=== PATIENT | male | born 1960 | race Caucasian/White ===

== ENCOUNTER 2019-12-19 09:49 | Inpatient (IN) ==
[2019-12-19] MEDS ORDERED: DIATRIZOATE MEGLU/DIATRIZO SOD 30 ML BOTTLE PO ONE (09:50)
[2019-12-19] MEDS ORDERED: IOPAMIDOL 100 ML BOTTLE IV ONE (09:50)
[2019-12-19] MEDS ORDERED: HYDROmorphone 1 MG/ML SYRINGE IV ONE ×2 (10:07→11:29)
[2019-12-19] MEDS ORDERED: 0.9 % SODIUM CHLORIDE 1,000 ML IV ONE ×2 (10:07→11:29)
[2019-12-19] MEDS ORDERED: ONDANSETRON 4 MG/2 ML VIAL IV ONE (10:07)
--- NOTE | 2019-12-19 10:19 | Emergency Department Note ---
Abdominal Pain HPI General Chief Complaint: Abdominal Pain Stated Complaint: abdominal pain Time Seen by Provider: 12/19/19 10:07 Source: patient Mode of arrival: ambulatory Limitations: no limitations History of Present Illness HPI Narrative: Patient is a 59-year-old male that comes into the emergency department today with complaint of right upper quadrant abdominal pain. Patient describes a dull aching sensation in the right upper quadrant that began 1 to 2 weeks ago. He has been seen at [facility] and also here at the emergency department at [facility]. Patient has had a ultras ound 2 days ago that did not show any acute cholecystitis or cholelithiasis. Patient's lipase level was mildly elevated. Patient was discharged from the emergency department 2 days ago with a referral made to Dr. Chen to follow-up for an outpatient consultation regarding his gallbladder. Patient return to the emergency department today as his pain has been worsening. He has not had any nausea or vomiting. He denies any melena or hematochezia. Patient reports he is a diabetic and his blood sugars have been uncontrolled for a long period of time. He has not had hemoglobin A1c less than 7%. He has not had any fevers or chills. He denies any chest pain, shortness of breath, or difficulty breathing. Related Data Home Medications Medication Instructions Recorded Confirmed metoprolol tartrate 50 mg PO HS 02/24/15 10/01/17 metformin 500 mg PO BID 07/27/15 10/01/17 aspirin [Lite Coat Aspirin] 4 tab PO PRN PRN 10/01/17 10/01/17 atorvastatin 10 mg PO HS 10/01/17 10/01/17 glipizide 5 mg PO QAMAC 10/01/17 10/01/17 Previous Rx's Medication Instructions Recorded aspirin 325 mg PO DAILY #14 tab.ec 10/07/17 cane #1 each 10/07/17 oxycodone-acetaminophen 1 - 2 tab PO Q4H PRN #60 tab 10/07/17 hydrocodone-acetaminophen 1 - 2 tab PO Q4HP PRN #20 tab 02/02/18 cefuroxime axetil 250 mg PO BID #20 tab 04/03/18 hydrocodone-acetaminophen 1 tab PO Q4HP PRN #12 tab 12/17/19 Allergies Allergy/AdvReac Type Severity Reaction Status Date / Time losartan [Losartan] Allergy Mild Itching Verified 12/19/19 09:51 lisinopril AdvReac Mild Cough Verified 12/19/19 09:51 Review of Systems All systems ED: reviewed and negative except as stated. [facility] Medical/Surgical/Family History All Active Problems (Updated 12/19/19 @ 15:41 by BRYCE Farrell) Strain of neck muscle (Acute) Post-op bleeding (Acute) Flank pain (Acute) Laceration (Acute) Nonalcoholic steatohepatitis (CEE) (Acute) Elevated lipase (Acute) Right upper quadrant abdominal pain (Acute) Hyperglycemia due to type 2 diabetes mellitus (Acute) Cholecystitis (Acute) Medical History (Updated 12/19/19 @ 15:41 by BRYCE Farrell) Strain of neck muscle (Acute) Social History Smoking Status: Current every day smoker Exam General Limitations: no limitations General appearance: alert and in no apparent distress Head Head: atraumatic and normocephalic Eye Eye: Present normal appearance, PERRL, EOMI and visual palumbo intact; Absent scleral icterus, conjunctival injection and periorbital swelling ENT ENT: Present normal oropharynx, mucous membranes moist and normal external ear exam; Absent nasal congestion Neck Neck: Present normal inspection, full ROM and trachea midline; Absent tenderness and lymphadenopathy Chest Chest: Present normal inspection and symmetric chest wall rise; Absent tenderness and rash Respiratory Respiratory: Present normal lung sounds bilaterally; Absent respiratory distress and accessory muscle use Cardiovascular Cardiovascular: Present regular rate, normal rhythm, +S1 and +S2; Absent systolic murmur, diastolic murmur and rubs Adbominal Abdominal: Present soft, normal bowel sounds and other (Moderate tenderness with palpation in the right upper quadrant. Positive Layne sign.); Absent distention, rebound, rigidity, ascites, mass and hernia Extremities Extremities: Present normal inspection, full ROM and normal capillary refill; Absent pedal edema, pretibial edema and calf tenderness Back Back: Present normal inspection, full ROM and CVA tenderness (R); Absent CVA tenderness (L), muscle spasm and spinous process tenderness Neurological Neurological: Present alert, oriented X3, CN II-XII intact and normal gait Psychiatric Psychiatric: Present normal affect and normal mood Skin Skin: Present warm, dry and normal color Course Reevaluation(s) Reevaluation #1: 1038 -patient given 1 mg of Dilaudid, a liter normal saline, currently pending labs at this time and abdominal x-ray. Patient resting comfortably. Urine dipstick is unremarkable except for glucosuria. Will check a blood sugar, and if elevated will plan on administering IV insulin. 1045 -patient's blood glucose was 313. Will administer 8 units of IV regular insulin. 1130 -repeat blood glucose level was 246. Patient rating pain 8 out of 10 on 0- 10 numerical pain scale. Will repeat 1 mg of Dilaudid, and order CT abdomen pelvis with contrast for further evaluation of the right upper quadrant abdominal pain. Patient was instructed to hold his metformin for 72 hours, and he was able to state verbal understanding. Vital Signs Vital signs: Vital Signs Temperature 96.3 F L 12/19/19 09:50 Pulse Rate 81 12/19/19 09:50 Respiratory Rate 18 12/19/19 09:50 Blood Pressure 111/87 12/19/19 09:50 Pulse Oximetry (%) 96 12/19/19 09:50 Temperature 97.4 F 12/19/19 15:18 Pulse Rate 65 12/19/19 15:18 Respiratory Rate 24 H 12/19/19 15:18 Blood Pressure 132/75 12/19/19 15:18 Pulse Oximetry (%) 94 12/19/19 15:18 [facility] MDM Narrative Medical decision making narrative: CT abdomen and pelvis shows inflammatory change around the gallbladder and in the right upper quadrant. Patient's labs do show the sodium 131, which is likely related to the blood glucose elevation. Patient has a total bilirubin of 0.5, AST 31, ALT 51. Alkaline phosphatase is 99. I called Dr. Gibson Chen who is on-call today to discuss the CT scan findings and Dr. Gibson Chen would like the patient admitted for observation and he will plan on seeing the patient and perhaps performing a cholecystectomy tomorrow morning. Patient is doing well at this time. He did receive a total of 2 mg of Dilaudid for pain which he did report had subsided his pain. Patient did continue to have pain, and will order the patient pain medication, nausea medicine, and IV fluids during the hospitalization. Dr. Gibson Chen will see the patient on the floor. Lab Data Lab results reviewed: Yes I reviewed the patient's lab results. Result diagrams: 12/19/19 10:21 12/19/19 10:20 Labs: Lab Results 12/19/19 12/19/19 12/19/19 Range/Units 10:09 10:10 10:20 WBC Cancelled RBC Cancelled Hgb Cancelled Hct Cancelled MCV Cancelled MCH Cancelled MCHC Cancelled RDW Cancelled Plt Count Cancelled MPV Cancelled Gran % Cancelled Lymph % (Auto) Cancelled [place] % (Auto) Cancelled Eos % (Auto) Cancelled Baso % (Auto) Cancelled Gran # Cancelled Lymph # (Auto) Cancelled [place] # (Auto) Cancelled Eos # (Auto) Cancelled Baso # (Auto) Cancelled Differential Comment Cancelled Sodium Cancelled 131 L Potassium Cancelled 4.3 Chloride Cancelled 94 L Carbon Dioxide Cancelled 25 Anion Gap Cancelled 12.0 BUN Cancelled 18 Creatinine Cancelled 1.0 GFR Calculation Cancelled 83 BUN/Creatinine Ratio Cancelled Glucose Cancelled 311 H Calcium Cancelled 9.6 Total Bilirubin Cancelled 0.5 AST Cancelled 31 ALT Cancelled 51 H Alkaline Phosphatase Cancelled 99 Total Protein Cancelled 7.4 Albumin Cancelled 4.0 Globulin Cancelled 3.4 Albumin/Globulin Ratio Cancelled 1.2 Lipase 63 H (7-60) U/L 12/19/19 Range/Units 10:21 WBC 7.1 RBC 5.33 Hgb 16.1 Hct 45.3 MCV 85.0 MCH 30.2 MCHC 35.5 RDW 12.0 Plt Count 155 MPV 11.5 H Gran % 63.3 Lymph % (Auto) 24.2 [place] % (Auto) 10.2 Eos % (Auto) 1.7 Baso % (Auto) 0.6 Gran # 4.47 Lymph # (Auto) 1.71 [place] # (Auto) 0.72 Eos # (Auto) 0.12 Baso # (Auto) 0.04 Differential Comment Sodium Potassium Chloride Carbon Dioxide Anion Gap BUN Creatinine GFR Calculation BUN/Creatinine Ratio Glucose Calcium Total Bilirubin AST ALT Alkaline Phosphatase Total Protein Albumin Globulin Albumin/Globulin Ratio Lipase (7-60) U/L Radiology Data Radiology results reviewed: Yes I reviewed the patient's radiology results. Radiology results narrative: Abdominal x-ray was read by Dr. Carlos today showing nonspecific and nonobstructive bowel gas pattern. No acute or focal abnormality. No interval change seen. 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
[2019-12-19 10:36] LABS: Basophils # (Auto) 0.04 K/mcL (0.00-0.30); Basophils % (Auto) 0.6 % (0.0-2.0); Eosinophils # (Auto) 0.12 K/mcL (0.00-0.70); Eosinophils % (Auto) 1.7 % (0.0-7.0); Granulocytes % (Auto) 63.3 % (38.0-78.0); Hematocrit 45.3 % (40.1-51.0); Hemoglobin 16.1 g/dL (13.7-17.5); Lymphocytes # (Auto) 1.71 K/mcL (1.50-4.80); Lymphocytes % (Auto) 24.2 % (15.5-49.0); Mean Corpuscular HGB Conc 35.5 g/dL (31.0-36.0); Mean Platelet Volume 11.5 fL (7.4-10.4); Monocytes # (Auto) 0.72 K/mcL (0.10-0.90); Monocytes % (Auto) 10.2 % (1.0-12.0); Platelet Count 155 K/mcL (140-440); RBC 5.33 M/mcL (4.63-6.08); WBC 7.1 K/mcL (4.50-11.00)
[2019-12-19] MEDS ORDERED: INSULIN REGULAR, HUMAN 1 UNIT/0.01 ML UNIT IV ONE (10:44)
[2019-12-19 10:59] LABS: ALT/SGPT 51 U/l (0-40); AST/SGOT 31 U/l (0-37); Albumin/Globulin Ratio 1.2 (1.0-2.3); Alkaline Phosphatase 99 U/L (39-117); Bilirubin,Total 0.5 mg/dL (0.0-1.0); Blood Urea Nitrogen 18 mg/dl (6-20); Calcium 9.6 mg/dl (8.6-10.4); Carbon Dioxide 25 mmol/L (22-30); Chloride 94 mmol/L (96-108); Globulin 3.4 gm/dL (2.2-3.7); Glomerular Filtration Rate 83; Glucose 311 mg/dL (70-105)
--- NOTE | 2019-12-19 11:03 | XRay Report ---
INDICATION: Pain TECHNIQUE: Supine and upright abdomen. COMPARISON: Previous plain film examination dated 02/02/2018. Previous CT scan dated 518 FINDINGS:Gas and fecal material within the colon. No dilated gas-filled small bowel. No significant air-fluid levels. There is no pneumoperitoneum. No biliary or portal venous gas. There is no pneumatosis. No focal abnormality. No interval change since 02/02/2018 IMPRESSION: 1. Nonspecific and nonobstructive bowel gas pattern 2. No acute or focal abnormality. No interval change Interpreted and Authenticated by: Efrain Carlos 12/19/19
--- NOTE | 2019-12-19 13:46 | Cat Scan Report ---
INDICATION: RUQ pain COMPARISON: Previous CT scan dated 02/02/2018. Previous abdominal ultrasound dated 12/17/2019 TECHNIQUE: Axial images were obtained through the abdomen and pelvis. Sagittally and coronally reformatted images. 80 mL Isovue 370 injected intravenously. Oral contrast material was given FINDINGS: Lung bases:Negative. No pulmonary parenchymal nodule. No pleural fluid or pericardial fluid Liver:Negative. No focal intrahepatic mass. No focal abnormality. Liver contour is smooth. No evidence for cirrhosis Gallbladder, bilary:There is inflammatory change within the fat surrounding the gallbladder and extending to the caudal tip of the liver and hepatic flexure of the colon. Previous right upper quadrant ultrasound demonstrated a contracted gallbladder. There were no stones visible at that time. Repeat gallbladder ultrasound with better gallbladder distention may be helpful. No calcified stones are identified on present examination. Common bile duct measures 3 mm. No intrahepatic bile duct dilatation Spleen:No splenomegaly. Normal enhancement of splenic and portal veins. Pancreas:No pancreatic mass. No peripancreatic abnormality Adrenal glands:Negative Kidneys, ureters, bladder:No solid or cystic renal mass. No hydronephrosis. No obstructing calculi. There is no hydroureter. No ureteral stone No bladder calculi or detectable mass Gastrointestinal:No detectable colonic mass. There is no diverticulitis. Small bowel is negative. No mechanical small bowel obstruction. Stomach and duodenum are unremarkable Appendix: The appendix is negative Vascular:Negative abdominal aorta. Superior mesenteric artery and celiac trunk are normal. Normal opacification of the inferior mesenteric artery Lymphatic:No retroperitoneal or mesenteric adenopathy Mesentery, peritoneum: No free intraperitoneal fluid. No mesenteric or retroperitoneal mass. Reproductive:Prostate is not significantly enlarged Musculoskeletal:Degenerative disc disease at L3-4, L4-5, and L5-S1. No compression fractures. Sacrum and pelvis are negative IMPRESSION: 1. Inflammatory change around the gallbladder and in the right upper quadrant. Repeat ultrasound may be helpful to evaluate for calculi. Previous right upper quadrant ultrasound was compromised by lack of gallbladder distention 2. No other abnormality The exam was performed using radiation dose optimization techniques including, but not limited to, automated exposure control, adjustment of the mA and/or kV according to patient size and use of iterative reconstruction technique. Interpreted and Authenticated by: Efrain Carlos 12/19/19
[2019-12-19] MEDS ORDERED: NALOXONE HCL 0.4 MG/ML VIAL IV PRN (14:23)
[2019-12-19] MEDS ORDERED: ONDANSETRON 4 MG/2 ML VIAL IV PRN (14:23)
[2019-12-19] MEDS ORDERED: morphine 2 MG/ML VIAL IV PRN (14:23)
[2019-12-19] MEDS: LACTATED RINGERS 1,000 ML IV SCH ×2 (14:42→23:43)
--- NOTE | 2019-12-19 16:55 | General Surg History&Physical ---
HPI History of Present Illness Patient information: Note initiated : 12/19/19 at 4:40 pm Service Date, if different from initiated Date: [] Patient: Yousif Tejeda 59 y/o M admitted on 12/19/19 for abdominal pain. Chief Complaint: [] History of present illness: Mr. Tejeda is a 59 year old M admitted with acute cholecystitis. The patient has a one-week history of recurrent severe right upper quadrant pain. He has been seen in the emergency room 2 for this pain. Ultrasound was done and showed a slightly thickened gallbladder but no stones. His LFTs were normal except for ALT of 51. He had continued symptoms and return today with increased findings of inflammatory changes in the right upper quadrant around the gallbladder with pericholecystic tissue edema and edema of the hepatic flexure of the colon. He has exquisite tenderness of the right upper quadrant and right subcostal region with thickening of the gallbladder wall. Patient has either acalculous cholecystitis or cholecystitis related to small stone obstructing the cystic duct. He is admitted and will have laparoscopic cholecystectomy tomorrow. Review of Systems All systems: reviewed and no additional remarkable complaints except as stated EENT Eyes: Present blurry vision (history of diabetic retinopathy) and change in vision Respiratory Respiratory: Present dyspnea Gastrointestinal Gastrointestinal: Present as per HPI Musculoskeletal Musculoskeletal: Present arthralgias Neurological Neurological: Present numbness Hematologic/Lymphatic Hematologic/Lymphatic: Absent easy bleeding, easy bruising and lymphadenopathy PFSH PFS Medical History (Updated 12/19/19 @ 16:54 by Jose G Chen MD) Strain of neck muscle (Acute) Social History smoking status: Current every day smoker MEDS/ALLERGIES Home Medications and Allergies Home Medications Medication Instructions Recorded Confirmed Type metoprolol tartrate 50 mg PO HS 02/24/15 12/19/19 History metformin 500 mg PO BID 07/27/15 12/19/19 History atorvastatin 10 mg PO HS 10/01/17 12/19/19 History glipizide 5 mg PO QAMAC 10/01/17 12/19/19 History cane #1 each 10/07/17 12/19/19 Rx hydrocodone-acetaminophen 1 tab PO Q4HP PRN #12 tab 12/17/19 12/19/19 Rx Allergies Allergy/AdvReac Type Severity Reaction Status Date / Time losartan [Losartan] Allergy Mild Itching Verified 12/19/19 09:51 lisinopril AdvReac Mild Cough Verified 12/19/19 09:51 Physical Examination Vital Signs Vital signs: Temp Pulse Resp BP Pulse Ox 97.4 F 65 24 H 132/75 94 12/19/19 15:18 12/19/19 15:18 12/19/19 15:18 12/19/19 15:18 12/19/19 15:18 Eyes Eye exam: PERRL and normal ocular movement; negative pale, icteric, deviation, loss of movement and other ENT ENT exam: normal pinna, normal nares, normal mucosa, decreased hearing and other (edentulous) Head Head exam IM: Present atraumatic, normal inspection and normocephalic Neck Neck exam: no masses; negative no bruits, trachea midline, no lymphadenopathy, no venous distension, deviated trachea, diffuse goiter, limited ROM and other Cardiovascular Cardiovascular exam IM: Present normal rate and rhythm, RRR, +S1 and +S2; Absent JVD and tachycardia Respiratory Respiratory exam: normal expansion, normal respiratory effort, clear to percussion, clear to auscultation and other Abdomen Abdomen: Present tender, guarding (exquisite tenderness with guarding and rebound right upper quadrant) and rebound Integumentary Integumentary: Present no rash, no growths, no abnormal pigmentation and other Neurologic Neurologic: Present normal coordination; Absent normal sensation Musculoskeletal Musculoskeletal: Present normal gait, normal posture and other Psychiatric Psychiatric: Present oriented to time, oriented to person, oriented to place, speech is normal, memory intact and other Results Labs Result diagrams: 12/19/19 10:21 12/19/19 10:20 Labs: Abnormal lab results 12/19/19 12/19/19 Range/Units 10:20 10:21 MPV 11.5 H (7.4-10.4) fL Sodium 131 L (133-145) mmol/L Chloride 94 L (96-108) mmol/L Glucose 311 H (70-105) mg/dL ALT 51 H (0-40) U/l Lipase 63 H (7-60) U/L Diabetes panel 12/19/19 12/19/19 Range/Units 10:09 10:20 Sodium Cancelled 131 L Potassium Cancelled 4.3 Chloride Cancelled 94 L Carbon Dioxide Cancelled 25 BUN Cancelled 18 Creatinine Cancelled 1.0 Glucose Cancelled 311 H Calcium Cancelled 9.6 AST Cancelled 31 ALT Cancelled 51 H Alkaline Phosphatase Cancelled 99 Total Protein Cancelled 7.4 Albumin Cancelled 4.0 Calcium panel 12/19/19 12/19/19 Range/Units 10:09 10:20 Calcium Cancelled 9.6 Albumin Cancelled 4.0 Pituitary panel 12/19/19 12/19/19 Range/Units 10:09 10:20 Sodium Cancelled 131 L Potassium Cancelled 4.3 Chloride Cancelled 94 L Carbon Dioxide Cancelled 25 BUN Cancelled 18 Creatinine Cancelled 1.0 Glucose Cancelled 311 H Calcium Cancelled 9.6 Adrenal panel 12/19/19 12/19/19 Range/Units 10:09 10:20 Sodium Cancelled 131 L Potassium Cancelled 4.3 Chloride Cancelled 94 L Carbon Dioxide Cancelled 25 BUN Cancelled 18 Creatinine Cancelled 1.0 Glucose Cancelled 311 H Calcium Cancelled 9.6 Total Bilirubin Cancelled 0.5 AST Cancelled 31 ALT Cancelled 51 H Alkaline Phosphatase Cancelled 99 Total Protein Cancelled 7.4 Albumin Cancelled 4.0 All other labs normal. 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 This will be performed tomorrow Status: Acute Time Spent With Patient Time: Total time spent is greater than 50% in coordination of care (as documented) at patient's floor/unit and/or counseling patient: Total time spent with greater than 50% in coordination of care (as documented) at patient's floor/unit and/or counseling patient:: 25 - 35 minutes
[2019-12-19] MEDS ORDERED: DEXTROSE 50% 50 ML VIAL IV PRN (17:03)
[2019-12-19] MEDS ORDERED: DEXTROSE 31 GM ORAL.SUSP PO PRN (17:03)
[2019-12-19 17:34] LABS: C-Reactive Protein 1.9 mg/dl (0.0-0.8)
[2019-12-19 17:36] LABS: INR 0.9 (0.9-1.1); Prothrombin Time 12.6 sec (11.9-14.5)
--- NOTE | 2019-12-19 19:30 | Ultrasound Report ---
INDICATION: repeat ultrasound to rule out cystic duct obstruct TECHNIQUE: Grayscale and color flow Doppler spectral imaging COMPARISON: Previous CT scan dated 12/19/2019 and ultrasound dated 12/17/2019 FINDINGS: Gallbladder:Patient ate prior to this examination. The gallbladder is slightly distended. No gallbladder calculi. No biliary sludge. No discrete mass. The gallbladder wall appears diffusely thickened and measures 6 mm. No pericholecystic fluid. Patient was tender when scanned over the gallbladder. Common bile duct:No intra or extrahepatic bile duct dilatation.. Common bile duct measures4 mm. Distal common bile duct is not well visualized. No common bile duct stones are identified but the entire common bile duct is not visualized. Liver: Liver is not evaluated Pancreas:Visualized portions of the pancreas are normal IMPRESSION: 1. Gallbladder wall appears diffusely thickened. Patient was tender when scanned over the gallbladder. 2. No gallstones or biliary sludge 3. No dilated bile ducts. Interpreted and Authenticated by: Efrain Carlos 12/19/19
[2019-12-19] MEDS: HYDROmorphone 1 MG/ML SYRINGE IV PRN ×2 (19:42→23:40)
[2019-12-19] MEDS: INSULIN LISPRO 1 UNIT/0.01 ML UNIT SQ SCH (20:59)
[2019-12-20] MEDS: LACTATED RINGERS 1,000 ML IV SCH (02:55)
[2019-12-20] MEDS: HYDROmorphone 1 MG/ML SYRINGE IV PRN ×6 (04:18→23:08)
[2019-12-20 04:39] LABS: Appearance,Urine CLEAR; Bilirubin,Urine NEG (NEG); Color,Urine YELLOW; Culture Indicated,Urine NO; Glucose,Urine (UA) 150 mg/dL (NEG); Ketones,Urine NEG (NEG); Leukocyte Esterase,Urine NEG /uL (NEG); Nitrate,Urine NEG (NEG); Protein,Urine NEG (NEG); Specific Gravity,Urine 1.017 (1.000-1.035); Urine Blood NEG mg/dL (<0.03); Urobilinogen,Urine NEG (NEG)
[2019-12-20] MEDS: INSULIN LISPRO 1 UNIT/0.01 ML UNIT SQ SCH ×4 (07:12→21:44)
[2019-12-20] MEDS ORDERED: SCOPOLAMINE 1 PATCH PATCH TOPICAL PRN (08:00)
[2019-12-20] MEDS ORDERED: IPRATROPIUM/ALBUTEROL 3 ML AMPUL.NEB NEB PRN ×4 (08:00→14:41)
[2019-12-20] MEDS ORDERED: ONDANSETRON 4 MG/2 ML VIAL IV PRN ×3 (10:21→14:41)
[2019-12-20] MEDS ORDERED: KETOROLAC 30 MG/ML VIAL IV PRN ×2 (10:21→12:43)
[2019-12-20] MEDS ORDERED: fentaNYL 100 MCG/2 ML VIAL IV PRN ×2 (10:21→12:43)
[2019-12-20] MEDS ORDERED: MEPERIDINE 25 MG/ML SYRINGE IV PRN ×2 (10:21→12:43)
[2019-12-20] MEDS ORDERED: PROMETHAZINE 25 MG/ML VIAL IM PRN ×2 (10:21→12:43)
[2019-12-20] MEDS ORDERED: MEPERIDINE 50 MG/ML INJECTION IM PRN ×2 (10:21→12:43)
[2019-12-20] MEDS ORDERED: GLYCOPYRROLATE 0.2 MG/ML VIAL IV ONE (10:27)
[2019-12-20] MEDS ORDERED: PROMETHAZINE 25 MG/ML VIAL IV ONE (10:27)
[2019-12-20] MEDS ORDERED: KETAMINE 100 MG/ML ML IV ONE (10:27)
[2019-12-20] MEDS ORDERED: PROPOFOL 200 MG/20 ML VIAL IV ONE (10:27)
[2019-12-20] MEDS ORDERED: ROCURONIUM 10 MG/ML ML IV ONE (10:27)
[2019-12-20] MEDS ORDERED: DEXAMETHASONE 10 MG/ML VIAL IV ONE (10:27)
[2019-12-20] MEDS ORDERED: fentaNYL 250 MCG/5 ML VIAL IV ONE (10:27)
[2019-12-20] MEDS ORDERED: LIDOCAINE HCL/PF 100 MG/5 ML SYRINGE IV ONE (10:27)
[2019-12-20] MEDS ORDERED: ONDANSETRON 4 MG/2 ML VIAL IV ONE (10:27)
[2019-12-20] MEDS ORDERED: SUGAMMADEX SODIUM 200 MG/2 ML VIAL IV ONE (10:27)
[2019-12-20] MEDS ORDERED: LACTATED RINGERS 1,000 ML IV SCH ×3 (10:30→14:41)
[2019-12-20] MEDS ORDERED: ACETAMINOPHEN 1,000 MG/100 ML BOTTLE IV ONE (12:43)
[2019-12-20] MEDS ORDERED: BENZOCAINE/MENTHOL 1 LOZENGE PO PRN ×2 (12:43→14:41)
[2019-12-20] MEDS ORDERED: HYDROmorphone 0.5 MG/0.5 ML SYRINGE IV PRN (12:43)
[2019-12-20] MEDS ORDERED: PROMETHAZINE 25 MG/ML VIAL IV PRN ×2 (12:43→14:41)
[2019-12-20] MEDS ORDERED: METHOCARBAMOL 1,000 MG/10 ML VIAL IV PRN (12:43)
--- NOTE | 2019-12-20 13:33 | Brief Operative Note ---
Brief Operative Note Date of procedure: 12/20/19 Pre-op diagnosis: acute cholecystitis Post-op diagnosis: other (cholecystitis with periduodenal inflammation) Procedure: open cholecystectomy WITH EXPLORATORY LAPAROTOMY Grafts/Implants: No (COLE DRAIN X2) Anesthesia: GETA Findings: GALLBLADDER WAS MILDLY INFLAMED SECONDARY TO AN INFLAMMATORY PROCESS IN SUBHEPATIC SPACE BUT COLON ,STOMACH AND DUODENUM WERE ALL NORMAL WITH OUT EVIDENCE OF DETECTABLE LEAKTHOUGH THERE WAS BILIOUS FLUID AND INFLAMMATORY EXUDATE IN RUQ QND SUBHEPATIC SPACE Complications: none Surgeon: Jose G Chen Estimated blood loss (cc): 50 Specimens Removed/Pathology: other (GALLBLADDER) Condition: stable Disposition: PACU
[2019-12-20] MEDS ORDERED: DEXTROSE 31 GM ORAL.SUSP PO PRN (14:41)
[2019-12-20] MEDS ORDERED: NALOXONE HCL 0.4 MG/ML VIAL IV PRN (14:41)
[2019-12-20] MEDS ORDERED: ACETAMINOPHEN 1,000 MG in PREMIX 1 BAG IV SCH (14:41)
[2019-12-20] MEDS ORDERED: LORazepam 2 MG/ML VIAL IV PRN (14:41)
[2019-12-20] MEDS ORDERED: DEXTROSE 50% 50 ML VIAL IV PRN (14:41)
[2019-12-20] MEDS: 0.9 % SODIUM CHLORIDE 1,000 ML IV SCH ×2 (15:19→21:45)
[2019-12-20] MEDS: PANTOPRAZOLE 40 MG VIAL IV SCH (17:00)
[2019-12-20] MEDS: PIPERACILLIN SODIUM/TAZOBACTAM 3.375 GM in DEXTROSE 5% IN WATER 50 ML IV SCH ×3 (17:00→23:08)
[2019-12-20] MEDS: KETOROLAC 15 MG/ML VIAL IV SCH (17:57)
[2019-12-20] MEDS: ACETAMINOPHEN 1,000 MG/100 ML BOTTLE IV SCH (20:39)
[2019-12-21] MEDS: KETOROLAC 15 MG/ML VIAL IV SCH ×4 (00:39→17:14)
[2019-12-21] MEDS: ACETAMINOPHEN 1,000 MG/100 ML BOTTLE IV SCH ×2 (02:54→07:08)
[2019-12-21] MEDS: HYDROmorphone 1 MG/ML SYRINGE IV PRN ×6 (03:01→21:56)
[2019-12-21] MEDS: 0.9 % SODIUM CHLORIDE 1,000 ML IV SCH ×5 (05:41→22:48)
[2019-12-21] MEDS: PIPERACILLIN SODIUM/TAZOBACTAM 3.375 GM in DEXTROSE 5% IN WATER 50 ML IV SCH ×3 (05:41→17:14)
[2019-12-21] MEDS: PANTOPRAZOLE 40 MG VIAL IV SCH ×2 (06:36→16:45)
[2019-12-21] MEDS: INSULIN LISPRO 1 UNIT/0.01 ML UNIT SQ SCH ×4 (06:39→19:50)
[2019-12-21 06:47] LABS: Basophils # (Auto) 0.02 K/mcL (0.00-0.30); Basophils % (Auto) 0.3 % (0.0-2.0); Eosinophils # (Auto) 0.13 K/mcL (0.00-0.70); Eosinophils % (Auto) 2.2 % (0.0-7.0); Granulocytes % (Auto) 68.6 % (38.0-78.0); Hemoglobin 13.7 g/dL (13.7-17.5); Lymphocytes # (Auto) 1.01 K/mcL (1.50-4.80); Lymphocytes % (Auto) 17.3 % (15.5-49.0); Mean Cell Volume 89.1 fL (80.0-100.0); Mean Corpuscular HGB Conc 33.4 g/dL (31.0-36.0); Mean Platelet Volume 11.3 fL (7.4-10.4); Monocytes # (Auto) 0.68 K/mcL (0.10-0.90); Monocytes % (Auto) 11.6 % (1.0-12.0); Platelet Count 139 K/mcL (140-440); Red Cell Distribution Width 12.2 % (11.5-14.5); WBC 5.9 K/mcL (4.50-11.00)
[2019-12-21 07:07] LABS: ALT/SGPT 35 U/l (0-40); AST/SGOT 32 U/l (0-37); Albumin 2.8 gm/dL (3.2-5.2); Alkaline Phosphatase 67 U/L (39-117); Bilirubin,Direct 0.3 mg/dL (0.0-0.3); Bilirubin,Total 0.9 mg/dL (0.0-1.0); Blood Urea Nitrogen 12 mg/dl (6-20); Calcium 8.3 mg/dl (8.6-10.4); Carbon Dioxide 25 mmol/L (22-30); Chloride 98 mmol/L (96-108); Glomerular Filtration Rate 83; Glucose 142 mg/dL (70-105); Lactate Dehydrogenase 212 U/L (94-250); Phosphorous 3.5 mg/dL (2.7-4.5); Triglycerides 70 mg/dl (<150); Uric Acid 3.2 mg/dL (2.5-8.0)
[2019-12-21 07:11] LABS: Globulin 2.8 gm/dL (2.2-3.7)
--- NOTE | 2019-12-21 16:35 | General Surgery Progress Note ---
SUBJECTIVE Subjective Patient information: Note initiated : 12/21/19 at 4:31 pm Service Date, if different from initiated Date: [] Patient: Yousif Tejeda 59 y/o M admitted on 12/20/19 for abdominal pain. Chief Complaint: [] Interval history: Narrative:patient is stable status post open cholecystectomy and drainage of right paraduodenal space. He is immobile. He denies nausea. His pain is not well controlled. Constitutional Vitals: Vital Signs Temp Pulse Resp BP Pulse Ox 98.6 F 78 18 136/75 91 12/21/19 15:18 12/21/19 15:18 12/21/19 15:18 12/21/19 15:18 12/21/19 15:18 Period Temp Pulse Resp BP Sys/Beth Pulse Ox Last 24 Hr 98.1 F-98.7 F 68-83 16-20 106-136/66-78 91-97 Intake and Output 12/21/19 12/21/19 12/21/19 05:59 13:59 21:59 Intake Total 1050 1350 Output Total 1170 250 510 Balance -120 1100 -510 Intake & Output: Intake & Output 12/21/19 12/21/19 12/21/19 05:59 13:59 21:59 Intake Total 1050 1350 Output Total 1170 250 510 Balance -120 1100 -510 Intake: IV 1050 1250 Sodium Chloride 0.9% 1,000 ml @ 1000 1000 150 mls/hr IV .[id number] RODRIGUEZ Rx#: [id number] Zosyn 3.375 gm In Dextrose 5% 50 50 in Water 50 ml @ 100 mls/hr IV Q6H RODRIGUEZ Rx#:[id number] Oral 100 Output: Gastric Drainage 300 200 Right Nare 300 200 Drainage 70 50 35 TERI drain A 30 30 20 TERI drain B 40 20 15 Void Amount 800 200 275 Other: Urine Appearance Clear Clear Urine Color Dark Yellow Light Polly Light Polly Urine Odor Strong Normal Neck Neck exam: Present full ROM and normal inspection; Absent tenderness and thyromegaly Respiratory Respiratory exam: Present normal respiratory exam and CTAB; Absent rales, rhonchi and wheezes Cardiovascular Cardiovascular exam: Present normal rate and rhythm, RRR, +S1 and +S2; Absent JVD GI/Abdominal GI/Abdominal exam: Present normal bowel sounds, distended and tenderness Additional comments: moderate tenderness of the incision; incision looks good; TERI drainage is serosanguineous Extremities Exam Extremities exam: Present full ROM and normal capillary refill; Absent normal inspection and pedal edema Back Exam Back exam: Present full ROM and normal inspection; Absent CVA tenderness (L), CVA tenderness (R) and tenderness Neurological Exam Neurological exam: Present alert, CN II-XII intact, normal gait and oriented X3 Psychiatric Psychiatric exam: Present normal affect and normal mood Skin Skin exam: Present normal color; Absent cyanosis and rash A/P Assessment and plan (1) Nonalcoholic steatohepatitis (CEE): Status: Acute (2) Hyperglycemia due to type 2 diabetes mellitus: Status: Acute Qualifiers: 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 Will continue on present therapy. Time Spent With Patient Time: Total time spent is greater than 50% in coordination of care (as documented) at patient's floor/unit and/or counseling patient:
[2019-12-21] MEDS: 0.9 % SODIUM CHLORIDE 10 ML SYRINGE IV SCH ×2 (19:51→20:07)
[2019-12-22] MEDS: PIPERACILLIN SODIUM/TAZOBACTAM 3.375 GM in DEXTROSE 5% IN WATER 50 ML IV SCH ×5 (00:07→23:54)
[2019-12-22] MEDS: HYDROmorphone 1 MG/ML SYRINGE IV PRN ×10 (00:07→23:53)
[2019-12-22] MEDS: KETOROLAC 15 MG/ML VIAL IV SCH ×3 (00:07→11:36)
[2019-12-22] MEDS: 0.9 % SODIUM CHLORIDE 10 ML SYRINGE IV SCH ×5 (05:06→20:38)
[2019-12-22] MEDS: 0.9 % SODIUM CHLORIDE 1,000 ML IV SCH ×4 (05:58→22:56)
[2019-12-22 07:23] LABS: Basophils # (Auto) 0.02 K/mcL (0.00-0.30); Basophils % (Auto) 0.3 % (0.0-2.0); Eosinophils # (Auto) 0.27 K/mcL (0.00-0.70); Eosinophils % (Auto) 4.2 % (0.0-7.0); Granulocytes % (Auto) 71.4 % (38.0-78.0); Hematocrit 40.4 % (40.1-51.0); Hemoglobin 13.4 g/dL (13.7-17.5); Lymphocytes # (Auto) 1.03 K/mcL (1.50-4.80); Lymphocytes % (Auto) 16.1 % (15.5-49.0); Mean Cell Volume 90.2 fL (80.0-100.0); Mean Corpuscular HGB Conc 33.2 g/dL (31.0-36.0); Mean Platelet Volume 10.6 fL (7.4-10.4); Monocytes # (Auto) 0.51 K/mcL (0.10-0.90); Platelet Count 144 K/mcL (140-440); RBC 4.48 M/mcL (4.63-6.08); Red Cell Distribution Width 11.9 % (11.5-14.5); WBC 6.4 K/mcL (4.50-11.00)
[2019-12-22] MEDS: PANTOPRAZOLE 40 MG VIAL IV SCH ×2 (07:31→16:59)
[2019-12-22] MEDS: INSULIN LISPRO 1 UNIT/0.01 ML UNIT SQ SCH ×4 (07:36→19:51)
[2019-12-22 07:44] LABS: ALT/SGPT 26 U/l (0-40); AST/SGOT 25 U/l (0-37); Albumin 2.7 gm/dL (3.2-5.2); Albumin/Globulin Ratio 0.9 (1.0-2.3); Alkaline Phosphatase 70 U/L (39-117); Bilirubin,Direct 0.2 mg/dL (0.0-0.3); Bilirubin,Total 0.7 mg/dL (0.0-1.0); Blood Urea Nitrogen 9 mg/dl (6-20); Calcium 7.6 mg/dl (8.6-10.4); Carbon Dioxide 22 mmol/L (22-30); Chloride 102 mmol/L (96-108); Globulin 3.1 gm/dL (2.2-3.7); Glomerular Filtration Rate 99; Glucose 107 mg/dL (70-105); Lactate Dehydrogenase 196 U/L (94-250); Triglycerides 99 mg/dl (<150); Uric Acid 2.8 mg/dL (2.5-8.0)
[2019-12-22 07:48] LABS: Phosphorous 2.2 mg/dL (2.7-4.5)
--- NOTE | 2019-12-22 11:55 | Surgical Pathology Report ---
HISTOLOGY SPECIMEN MICROSCOPIC DIAGNOSIS GALLBLADDER, CHOLECYSTECTOMY: -- CHRONIC CHOLECYSTITIS WITH ACUTE SEROSITIS; SEE COMMENT. (DMT:adj) COMMENT: Sections show gallbladder mucosal changes consistent with chronic cholecystitis. Additionally, on the serosal surface are numerous neutrophils and fibrinous debris, consistent with acute serositis. No luminal or mural neutrophilic infiltrate is identified arguing against an acute cholecystitis as a cause for the serositis. Causes for acute serositis not related to the gallbladder should be considered. Clinical correlation is necessary. CLINICAL HISTORY Abdominal pain. PROCEDURAL IMPRESSION Wall thickening. GROSS DESCRIPTION Received in formalin labeled with the patient information, is a 9 x 2.5 x 1.1 cm dark purple-maurice gallbladder. There are multiple metal clips present, however the duct is not clipped. The serosal surface is smooth and glistening. The lumen contains a minimal amount of watery green fluid. There are two openings on the hepatic bed each 0.2 cm. The mucosa is maurice-brown and trabecular. The wall is up to 0.3 cm thick. No stones or gross lesions are identified. Building Maintenance Repairer sections submitted in one cassette. (STS:sln) Electronically Signed by: Moncho Connors M.D.
--- NOTE | 2019-12-22 15:36 | General Surg History&Physical ---
HPI History of Present Illness Patient information: Note initiated : 12/19/19 at 4:55 pm Service Date, if different from initiated Date: [] Patient: Yousif Tejeda 59 y/o M admitted on 12/19/19 for abdominal pain. Chief Complaint: [] History of present illness: Mr. Tejeda is a 59 year old M [facility] Medical History (Updated 12/19/19 @ 16:54 by Jose G Chen MD) Strain of neck muscle (Acute) Social History smoking status: Current every day smoker MEDS/ALLERGIES Home Medications and Allergies Home Medications Medication Instructions Recorded Confirmed Type metoprolol tartrate 50 mg PO HS 02/24/15 12/19/19 History metformin 500 mg PO BID 07/27/15 12/19/19 History atorvastatin 10 mg PO HS 10/01/17 12/19/19 History glipizide 5 mg PO QAMAC 10/01/17 12/19/19 History cane #1 each 10/07/17 12/19/19 Rx hydrocodone-acetaminophen 1 tab PO Q4HP PRN #12 tab 12/17/19 12/19/19 Rx Allergies Allergy/AdvReac Type Severity Reaction Status Date / Time lisinopril AdvReac Mild Cough Verified 12/19/19 09:51 losartan [Losartan] AdvReac Mild Itching Verified 12/21/19 08:14 Physical Examination Vital Signs Vital signs: Temp Pulse Resp BP Pulse Ox 97.4 F 62 16 110/70 96 12/19/19 16:00 12/19/19 16:00 12/19/19 16:00 12/19/19 16:00 12/19/19 16:00 Results Labs Result diagrams: 12/22/19 05:45 12/22/19 05:45 Labs: Abnormal lab results 12/19/19 12/19/19 Range/Units 10:20 10:21 MPV 11.5 H (7.4-10.4) fL Sodium 131 L (133-145) mmol/L Chloride 94 L (96-108) mmol/L Glucose 311 H (70-105) mg/dL ALT 51 H (0-40) U/l Lipase 63 H (7-60) U/L Diabetes panel 12/19/19 12/19/19 Range/Units 10:09 10:20 Sodium Cancelled 131 L Potassium Cancelled 4.3 Chloride Cancelled 94 L Carbon Dioxide Cancelled 25 BUN Cancelled 18 Creatinine Cancelled 1.0 Glucose Cancelled 311 H Calcium Cancelled 9.6 AST Cancelled 31 ALT Cancelled 51 H Alkaline Phosphatase Cancelled 99 Total Protein Cancelled 7.4 Albumin Cancelled 4.0 Calcium panel 12/19/19 12/19/19 Range/Units 10:09 10:20 Calcium Cancelled 9.6 Albumin Cancelled 4.0 Pituitary panel 12/19/19 12/19/19 Range/Units 10:09 10:20 Sodium Cancelled 131 L Potassium Cancelled 4.3 Chloride Cancelled 94 L Carbon Dioxide Cancelled 25 BUN Cancelled 18 Creatinine Cancelled 1.0 Glucose Cancelled 311 H Calcium Cancelled 9.6 Adrenal panel 12/19/19 12/19/19 Range/Units 10:09 10:20 Sodium Cancelled 131 L Potassium Cancelled 4.3 Chloride Cancelled 94 L Carbon Dioxide Cancelled 25 BUN Cancelled 18 Creatinine Cancelled 1.0 Glucose Cancelled 311 H Calcium Cancelled 9.6 Total Bilirubin Cancelled 0.5 AST Cancelled 31 ALT Cancelled 51 H Alkaline Phosphatase Cancelled 99 Total Protein Cancelled 7.4 Albumin Cancelled 4.0 All other labs normal. A/P Assessment and plan (1) Nonalcoholic steatohepatitis (CEE): Status: Acute (2) Hyperglycemia due to type 2 diabetes mellitus: Status: Acute Qualifiers: Diabetes mellitus half-way insulin use: unspecified half-way insulin use status Qualified Code(s): E11.65 - Type 2 diabetes mellitus with hyperglycemia (3) History of total knee arthroplasty: Status: Acute (4) Acute cholecystitis: Status: Acute Time Spent With Patient Time: Total time spent is greater than 50% in coordination of care (as documented) at patient's floor/unit and/or counseling patient:
--- NOTE | 2019-12-22 15:40 | General Surgery Progress Note ---
SUBJECTIVE Subjective Patient information: Note initiated : 12/22/19 at 3:36 pm Service Date, if different from initiated Date: [] Patient: Yousif Tejeda 59 y/o M admitted on 12/20/19 for abdominal pain. Chief Complaint: [] Interval history: Narrative:patient is improved. He is afebrile. He has had flatus but no bowel movement. White blood count 6.4, hemoglobin 13.4, hematocrit 40.4. Constitutional Vitals: Vital Signs Temp Pulse Resp BP Pulse Ox 98.2 F 78 20 149/76 93 12/22/19 12:00 12/22/19 12:00 12/22/19 12:00 12/22/19 12:00 12/22/19 12:00 Period Temp Pulse Resp BP Sys/Beth Pulse Ox Last 24 Hr 97.7 F-99.2 F 78-96 14-20 131-149/63-92 90-93 Intake and Output 12/22/19 12/22/19 12/22/19 05:59 13:59 21:59 Intake Total 1100 1100 Output Total 905 800 Balance 195 300 Weight 223 lb 1.6 oz Patient Weight 12/23/19 05:59 Weight 223 lb 1.6 oz Intake & Output: Intake & Output 12/22/19 12/22/19 12/22/19 05:59 13:59 21:59 Intake Total 1100 1100 Output Total 905 800 Balance 195 300 Weight 223 lb 1.6 oz Intake: IV 1050 1100 Sodium Chloride 0.9% 1,000 ml @ 1000 1000 150 mls/hr IV .Q6H40M RODRIGUEZ Rx#: [id number] Zosyn 3.375 gm In Dextrose 5% 50 100 in Water 50 ml @ 100 mls/hr IV Q6H RODRIGUEZ Rx#:[id number] Oral 50 Output: Gastric Drainage 200 Right Nare 200 Drainage 105 TERI drain A 80 TERI drain B 25 Void Amount 600 800 Other: Urine Appearance Clear Clear Urine Color Bright Yellow Straw Urine Odor Normal # Voids 1 Head Head exam: Present atraumatic, normal inspection and normocephalic Eye Eye exam: Present EOMI Pupils: Present normal accommodation and PERRL ENT ENT exam: Present mucous membranes moist, normal exam, normal external ear exam and normal oropharynx Neck Neck exam: Present full ROM and normal inspection; Absent lymphadenopathy, tenderness and thyromegaly Respiratory Respiratory exam: Present normal respiratory exam and CTAB; Absent rales, respiratory distress, rhonchi and wheezes Cardiovascular Cardiovascular exam: Present normal rate and rhythm, RRR, +S1 and +S2; Absent gallop and JVD GI/Abdominal GI/Abdominal exam: Present normal bowel sounds and distended Additional comments: abdomen is mildly distended; he has good active bowel sounds; incision looks good; TERI drainage is serosanguineous Back Exam Back exam: Present full ROM and normal inspection; Absent CVA tenderness (L), CVA tenderness (R) and tenderness Neurological Exam Neurological exam: Present reflexes normal; Absent motor sensory deficit Psychiatric Psychiatric exam: Present normal affect and normal mood Skin Skin exam: Absent petechiae, rash and urticaria A/P Assessment and plan (1) Nonalcoholic steatohepatitis (CEE): Status: Acute (2) Hyperglycemia due to type 2 diabetes mellitus: Status: Acute Qualifiers: Diabetes mellitus senior care insulin use: unspecified senior care insulin use status Qualified Code(s): E11.65 - Type 2 diabetes mellitus with hyperglycemia (3) History of total knee arthroplasty: Status: Acute (4) Acute cholecystitis: Status: Acute Narrative A/P Narrative: Narrative: discontinue nasogastric tube Start clear liquids Follow-up with cultures Time Spent With Patient Time: Total time spent is greater than 50% in coordination of care (as documented) at patient's floor/unit and/or counseling patient:
[2019-12-23] MEDS: HYDROmorphone 1 MG/ML SYRINGE IV PRN ×8 (01:55→22:05)
[2019-12-23] MEDS: 0.9 % SODIUM CHLORIDE 10 ML SYRINGE IV SCH ×3 (04:00→20:35)
[2019-12-23] MEDS: PIPERACILLIN SODIUM/TAZOBACTAM 3.375 GM in DEXTROSE 5% IN WATER 50 ML IV SCH ×4 (05:46→23:48)
[2019-12-23] MEDS: 0.9 % SODIUM CHLORIDE 1,000 ML IV SCH ×4 (05:49→21:39)
[2019-12-23] MEDS: PANTOPRAZOLE 40 MG VIAL IV SCH ×2 (06:51→17:14)
[2019-12-23] MEDS: INSULIN LISPRO 1 UNIT/0.01 ML UNIT SQ SCH ×4 (07:44→20:35)
[2019-12-23 09:53] LABS: Basophils # (Auto) 0.04 K/mcL (0.00-0.30); Basophils % (Auto) 0.7 % (0.0-2.0); Eosinophils % (Auto) 5.5 % (0.0-7.0); Granulocytes % (Auto) 65.2 % (38.0-78.0); Hematocrit 41.1 % (40.1-51.0); Hemoglobin 14.2 g/dL (13.7-17.5); Lymphocytes # (Auto) 1.06 K/mcL (1.50-4.80); Lymphocytes % (Auto) 19.3 % (15.5-49.0); Mean Cell Volume 86.3 fL (80.0-100.0); Mean Corpuscular HGB Conc 34.5 g/dL (31.0-36.0); Mean Platelet Volume 10.4 fL (7.4-10.4); Monocytes # (Auto) 0.51 K/mcL (0.10-0.90); Monocytes % (Auto) 9.3 % (1.0-12.0); Platelet Count 179 K/mcL (140-440); RBC 4.76 M/mcL (4.63-6.08); Red Cell Distribution Width 11.8 % (11.5-14.5); WBC 5.5 K/mcL (4.50-11.00)
[2019-12-23 10:54] LABS: ALT/SGPT 27 U/l (0-40); AST/SGOT 25 U/l (0-37); Albumin 3.4 gm/dL (3.2-5.2); Alkaline Phosphatase 81 U/L (39-117); Bilirubin,Direct 0.3 mg/dL (0.0-0.3); Bilirubin,Total 0.8 mg/dL (0.0-1.0); Blood Urea Nitrogen 7 mg/dl (6-20); Calcium 8.5 mg/dl (8.6-10.4); Carbon Dioxide 22 mmol/L (22-30); Chloride 96 mmol/L (96-108); Globulin 3.4 gm/dL (2.2-3.7); Glomerular Filtration Rate 99; Glucose 237 mg/dL (70-105); Lactate Dehydrogenase 219 U/L (94-250); Phosphorous 2.2 mg/dL (2.7-4.5); Triglycerides 134 mg/dl (<150); Uric Acid 2.4 mg/dL (2.5-8.0)
--- NOTE | 2019-12-23 16:50 | General Surgery Progress Note ---
SUBJECTIVE Subjective Patient information: Note initiated : 12/23/19 at 4:47 pm Service Date, if different from initiated Date: [] Patient: Yousif Tejeda 59 y/o M admitted on 12/20/19 for abdominal pain. Chief Complaint: [] Interval history: Narrative: patient continues to improve. He has been afebrile had multiple bowel movements. He has tolerated full liquids without difficulty. Potassium 3.5, BUN 7, creatinine is 0.8, phosphorus 2.2, white blood count 5.5, hemoglobin 14.2, hematocrit 41. Constitutional Vitals: Vital Signs Temp Pulse Resp BP Pulse Ox 98.2 F 69 18 144/85 94 12/23/19 11:48 12/23/19 11:48 12/23/19 11:48 12/23/19 11:48 12/23/19 11:48 Period Temp Pulse Resp BP Sys/Beth Pulse Ox Last 24 Hr 98.2 F-98.7 F 69-85 16-20 135-154/79-91 91-96 Intake and Output 12/23/19 12/23/19 12/23/19 05:59 13:59 21:59 Intake Total 1050 1100 Output Total 2556 400 340 Balance -1506 700 -340 Intake & Output: Intake & Output 12/23/19 12/23/19 12/23/19 05:59 13:59 21:59 Intake Total 1050 1100 Output Total 2556 400 340 Balance -1506 700 -340 Intake: IV 1050 1100 Sodium Chloride 0.9% 1,000 ml @ 1000 1000 150 mls/hr IV .Q6H40M RODRIGUEZ Rx#: [id number] Zosyn 3.375 gm In Dextrose 5% 50 100 in Water 50 ml @ 100 mls/hr IV Q6H RODRIGUEZ Rx#:[id number] Oral 0 Output: Drainage 56 50 40 TERI drain A 28 30 30 TERI drain B 28 20 10 Void Amount 2500 350 300 Other: Urine Appearance Clear Urine Color Bright Yellow # Voids 1 1 Head Head exam: Present atraumatic, normal inspection and normocephalic Eye Eye exam: Present EOMI Pupils: Present normal accommodation and PERRL ENT ENT exam: Present mucous membranes moist, normal exam, normal external ear exam and normal oropharynx Neck Neck exam: Present full ROM and normal inspection; Absent lymphadenopathy, tenderness and thyromegaly Respiratory Respiratory exam: Present normal respiratory exam and CTAB; Absent rales, respiratory distress, rhonchi and wheezes Cardiovascular Cardiovascular exam: Present normal rate and rhythm, RRR, +S1 and +S2; Absent gallop and JVD GI/Abdominal GI/Abdominal exam: Present normal bowel sounds and distended Additional comments: abdomen is mildly distended; he has good active bowel sounds; incision looks good; TERI drainage is serosanguineous Extremities Exam Extremities exam: Present full ROM and normal capillary refill; Absent normal inspection and pedal edema Neurological Exam Neurological exam: Present reflexes normal; Absent motor sensory deficit Psychiatric Psychiatric exam: Present normal affect and normal mood A/P Assessment and plan (1) Nonalcoholic steatohepatitis (CEE): Status: Acute Comment: stable without change (2) Hyperglycemia due to type 2 diabetes mellitus: Status: Acute Qualifiers: Diabetes mellitus senior care insulin use: unspecified superintendent container terminal insulin use status Qualified Code(s): E11.65 - Type 2 diabetes mellitus with hyperglycemia (3) History of total knee arthroplasty: Status: Acute (4) Acute cholecystitis: Status: Acute Comment: clinically stable; diet is advanced to regular diet Probable discharge tomorrow Narrative A/P Narrative: Narrative: Time Spent With Patient Time: Total time spent is greater than 50% in coordination of care (as documented) at patient's floor/unit and/or counseling patient:
[2019-12-24] MEDS: HYDROmorphone 1 MG/ML SYRINGE IV PRN ×4 (02:15→12:38)
[2019-12-24] MEDS: 0.9 % SODIUM CHLORIDE 1,000 ML IV SCH ×2 (05:12→11:54)
[2019-12-24] MEDS: 0.9 % SODIUM CHLORIDE 10 ML SYRINGE IV SCH (05:12)
[2019-12-24] MEDS: PIPERACILLIN SODIUM/TAZOBACTAM 3.375 GM in DEXTROSE 5% IN WATER 50 ML IV SCH ×2 (05:12→12:04)
[2019-12-24 07:27] LABS: Basophils # (Auto) 0.03 K/mcL (0.00-0.30); Basophils % (Auto) 0.6 % (0.0-2.0); Eosinophils # (Auto) 0.34 K/mcL (0.00-0.70); Eosinophils % (Auto) 6.6 % (0.0-7.0); Granulocytes % (Auto) 57.5 % (38.0-78.0); Hematocrit 41.4 % (40.1-51.0); Hemoglobin 14.4 g/dL (13.7-17.5); Lymphocytes # (Auto) 1.35 K/mcL (1.50-4.80); Lymphocytes % (Auto) 26.3 % (15.5-49.0); Mean Cell Volume 86.1 fL (80.0-100.0); Mean Corpuscular HGB Conc 34.8 g/dL (31.0-36.0); Monocytes # (Auto) 0.46 K/mcL (0.10-0.90); Platelet Count 198 K/mcL (140-440); RBC 4.81 M/mcL (4.63-6.08); Red Cell Distribution Width 11.9 % (11.5-14.5); WBC 5.1 K/mcL (4.50-11.00)
[2019-12-24] MEDS: PANTOPRAZOLE 40 MG VIAL IV SCH (08:00)
[2019-12-24] MEDS: INSULIN LISPRO 1 UNIT/0.01 ML UNIT SQ SCH ×2 (08:00→12:03)
[2019-12-24 08:12] LABS: ALT/SGPT 27 U/l (0-40); AST/SGOT 30 U/l (0-37); Albumin 3.3 gm/dL (3.2-5.2); Albumin/Globulin Ratio 0.9 (1.0-2.3); Alkaline Phosphatase 85 U/L (39-117); Bilirubin,Total 0.6 mg/dL (0.0-1.0); Calcium 8.5 mg/dl (8.6-10.4); Carbon Dioxide 21 mmol/L (22-30); Chloride 102 mmol/L (96-108); Globulin 3.6 gm/dL (2.2-3.7); Glomerular Filtration Rate 99; Glucose 210 mg/dL (70-105); Lactate Dehydrogenase 230 U/L (94-250); Triglycerides 134 mg/dl (<150); Uric Acid 2.1 mg/dL (2.5-8.0)
[2019-12-24 08:23] LABS: Bilirubin,Direct < 0.2 mg/dL (0.0-0.3); Blood Urea Nitrogen 4 mg/dl (6-20); Phosphorous 2.8 mg/dL (2.7-4.5)
--- NOTE | 2019-12-24 12:17 | Discharge Summary ---
Discharge Provider Provider Patient information: Note initiated : 12/24/19 at 12:04 pm Service Date, if different from initiated Date: [] Patient: Yousif Tejeda 59 y/o M admitted on 12/20/19 for abdominal pain. Chief Complaint: [] Date of admission: 12/20/19 13:25 Discharge date: 12/24/19 Primary care physician: Dominique Monsalve Admitting clinician: Jose G Chen Attending physician on admission: Jose G Chen Consults: 12/20/19 09:37 Consult to Physician [CONS] Routine Comment: Consulting Provider: Jose G Chen Reason For Exam: Physician to Consult Attending physician on discharge: Jose G Chen Discharging clinician: Jose G Chen COURSE Hospital Course Hospital Course: 59-year-old male admitted for evaluation of right upper quadrant pain. He had recurrent severe pain in the right upper quadrant and subcostal region. He was seen in the emergency room twice with no significant abnormal findings. Gallbladder ultrasound initially was negative however follow-up ultrasound revealed fluid in the right subhepatic space but with normal gallbladder. This was confirmed by CT. Liver panel was normal. Because of continued severe symptoms diagnostic laparoscopy was performed and it showed bilious fluid in the right subhepatic space surrounding the gallbladder and edema of the duodenum and GEROTA'S fascia. Thethe gallbladder had serosal inflammation but did not appear to be acutely infected. The duodenum was mobilized and appeared edematous but there was no evidence of perforation. The colon hepatic flexure was mobilized and did not appear to be involved. Cholecystectomy was done in the area was drained. The antrum and body of the stomach were normal. Patient has improved clinically and has had an uneventful course. He has been advanced to a diet without difficulty. His white blood count is normal. LFTs also normal. Discharge diagnosis: inflammation right upper quadrant, source not identified Secondary discharge diagnosis: chronic cholecystitis Reason for admission: recurrent right upper quadrant pain Procedures: diagnostic laparoscopy with open laparotomy and cholecystectomy Pertinent studies/significant findings: CT of abdomen and pelvis Upper abdominal ultrasound Complications: none Time Spent with Patient Time attestation: Total time spent providing and/or coordinating discharge services: Physical Examination Vital Signs Vital signs: Temp Pulse Resp BP Pulse Ox 97.9 F 68 16 139/81 93 12/24/19 07:54 12/24/19 07:54 12/24/19 07:54 12/24/19 07:54 12/24/19 07:54 General physical appearance General physical exam: well developed, well nourished, no distress and moderate pain Eyes Eye exam: PERRL and normal ocular movement ENT ENT exam: normal pinna, normal nares and normal mucosa Head Head exam IM: Present atraumatic, normal inspection and normocephalic Neck Neck exam: no masses, no bruits, trachea midline and no lymphadenopathy Respiratory Respiratory exam: normal expansion, normal respiratory effort, clear to percussion, clear to auscultation and other Abdomen Abdomen: Present tender (tender midline incision; bloody TERI drainage) Integumentary Integumentary: Present no rash, no growths, no abnormal pigmentation and other Neurologic Neurologic: Present normal coordination and normal sensation Musculoskeletal Musculoskeletal: Present normal gait, normal posture and other Psychiatric Psychiatric: Present oriented to time, oriented to person, oriented to place, speech is normal, memory intact and other Discharge Plan Patient/Caregiver Discharge Instructions Activity: increase activity as tolerated Diet: Low Fat Activity Restrictions/Additional Instructions: no lifting over 20 pounds for the next 2 weeks May shower with dressing intact Return to the office if you need to have dressings changed Prescriptions: New ciprofloxacin HCl [ciprofloxacin HCl] 500 MG tablet 500 mg PO BID Qty: 20 RF: 0 hydrocodone-acetaminophen 10-325 mg Tablet 1 tab PO Q4H PRN (Reason: Pain) Qty: 40 RF: 0 pantoprazole 40 mg Tablet,Delayed Release (Dr/Ec) 40 mg PO BIDAC Qty: 60 RF: 3 Continued metoprolol tartrate 50 MG tablet 50 mg PO HS RF: 0 metformin 500 MG tablet extended release 24 hr 500 mg PO BID RF: 0 atorvastatin 20 MG tablet 10 mg PO HS RF: 0 glipizide 5 MG tablet 5 mg PO QAMAC RF: 0 (DME) cane 1 EACH device 1 each MC CONT Qty: 1 RF: 0 hydrocodone-acetaminophen 1 TAB tablet 1 tab PO Q4HP PRN (Reason: Pain) Qty: 12 RF: 0 Follow Up Plan Follow up with: Dominique Monsalve ARNP [Primary Care Provider] - Jose G Chen MD [Physician] - 01/07/20 Patient Disposition: Home, Self-Care Plan of Treatment: continue pantoprazole and ciprofloxacin after discharge Assessment: patient is discharged in stable improved condition Prognosis: Good Rehab Potential: Good I certify that the patient requires SNF services: No Overall status at discharge: patient is progressing back to baseline Discharge Orders: Discharge Order (Routine); Ordered 12/24/19 Ordered By: Jose G Chen Pending Pending Pending: Resuscitation Status Full Code Diet Regular Diet Start SatDec 22 163 Diagnostic Test (Pha) (Accu-Chek) 1 each FS ACHS RODRIGUEZ Last Admin: 12/24/19 11:57 Dose: 1 each Documented by: Admin: 12/24/19 07:44 Dose: 1 each Documented by: Admin: 12/23/19 20:34 Dose: 1 each Documented by: Admin: 12/23/19 17:14 Dose: 1 each Documented by: Admin: 12/23/19 11:42 Dose: 1 each Documented by: Admin: 12/23/19 06:54 Dose: 1 each Documented by: Admin: 12/22/19 19:48 Dose: 1 each Documented by: Admin: 12/22/19 17:01 Dose: 1 each Documented by: Admin: 12/22/19 11:38 Dose: 1 each Documented by: Admin: 12/22/19 07:33 Dose: 1 each Documented by: Admin: 12/21/19 19:50 Dose: 1 each Documented by: Admin: 12/21/19 16:48 Dose: 1 each Documented by: Admin: 12/21/19 11:02 Dose: 1 each Documented by: Admin: 12/21/19 06:36 Dose: 1 each Documented by: Admin: 12/20/19 21:43 Dose: 1 each Documented by: Admin: 12/20/19 17:07 Dose: 1 each Documented by: KENDRICK Hydromorphone HCl (Dilaudid) 1 mg IV Q2HP PRN; Protocol PRN Reason: Per Pain Protocol Last Admin: 12/24/19 08:50 Dose: 1 mg Documented by: Admin: 12/24/19 05:12 Dose: 1 mg Documented by: Admin: 12/24/19 02:15 Dose: 1 mg Documented by: Admin: 12/23/19 22:05 Dose: 1 mg Documented by: Admin: 12/23/19 20:08 Dose: 1 mg Documented by: Admin: 12/23/19 14:36 Dose: 1 mg Documented by: Admin: 12/23/19 11:45 Dose: 1 mg Documented by: Admin: 12/23/19 07:44 Dose: 1 mg Documented by: Admin: 12/23/19 05:48 Dose: 1 mg Documented by: Admin: 12/23/19 03:54 Dose: 1 mg Documented by: Admin: 12/23/19 01:55 Dose: 1 mg Documented by: Admin: 12/22/19 23:53 Dose: 1 mg Documented by: Admin: 12/22/19 19:52 Dose: 1 mg Documented by: Admin: 12/22/19 18:05 Dose: 1 mg Documented by: Admin: 12/22/19 15:32 Dose: 1 mg Documented by: Admin: 12/22/19 13:13 Dose: 1 mg Documented by: Admin: 12/22/19 09:29 Dose: 1 mg Documented by: Admin: 12/22/19 05:59 Dose: 1 mg Documented by: Admin: 12/22/19 04:14 Dose: 1 mg Documented by: Admin: 12/22/19 02:23 Dose: 1 mg Documented by: Admin: 12/22/19 00:07 Dose: 1 mg Documented by: Admin: 12/21/19 21:56 Dose: 1 mg Documented by: Admin: 12/21/19 19:01 Dose: 1 mg Documented by: Admin: 12/21/19 16:24 Dose: 1 mg Documented by: Admin: 12/21/19 08:47 Dose: 1 mg Documented by: Admin: 12/21/19 05:40 Dose: 1 mg Documented by: Admin: 12/21/19 03:01 Dose: 1 mg Documented by: Admin: 12/20/19 23:08 Dose: 1 mg Documented by: Admin: 12/20/19 20:10 Dose: 1 mg Documented by: [email or web address] Admin: 12/20/19 15:13 Dose: 1 mg Documented by: KENDRICK Piperacillin Sod/Tazobactam (Sod 3.375 gm/ Dextrose) 50 mls @ 100 mls/hr IV Q6H RODRIGUEZ; Protocol Last Admin: 12/24/19 12:04 Dose: 100 mls/hr Documented by: Infusion: 12/24/19 05:42 Dose: 100 mls/hr Documented by: Admin: 12/24/19 05:12 Dose: 100 mls/hr Documented by: Infusion: 12/24/19 00:20 Dose: 0 mls/hr Documented by: Admin: 12/23/19 23:48 Dose: 100 mls/hr Documented by: LSCUJOSE RAULY Infusion: 12/23/19 17:45 Dose: 100 mls/hr Documented by: Admin: 12/23/19 17:15 Dose: 100 mls/hr Documented by: [email or web address] Infusion: 12/23/19 12:45 Dose: 0 mls/hr Documented by: [email or web address] Admin: 12/23/19 12:11 Dose: 100 mls/hr Documented by: [email or web address] Infusion: 12/23/19 06:16 Dose: 100 mls/hr Documented by: [email or web address] Admin: 12/23/19 05:46 Dose: 100 mls/hr Documented by: Infusion: 12/23/19 00:24 Dose: 100 mls/hr Documented by: Admin: 12/22/19 23:54 Dose: 100 mls/hr Documented by: Infusion: 12/22/19 17:47 Dose: 100 mls/hr Documented by: Admin: 12/22/19 17:17 Dose: 100 mls/hr Documented by: Infusion: 12/22/19 12:30 Dose: 0 mls/hr Documented by: Admin: 12/22/19 11:47 Dose: 100 mls/hr Documented by: Infusion: 12/22/19 06:45 Dose: 0 mls/hr Documented by: Admin: 12/22/19 05:58 Dose: 100 mls/hr Documented by: Infusion: 12/22/19 00:37 Dose: 100 mls/hr Documented by: Admin: 12/22/19 00:07 Dose: 100 mls/hr Documented by: Infusion: 12/21/19 17:44 Dose: 100 mls/hr Documented by: Admin: 12/21/19 17:14 Dose: 100 mls/hr Documented by: Infusion: 12/21/19 13:19 Dose: 100 mls/hr Documented by: Admin: 12/21/19 12:49 Dose: 100 mls/hr Documented by: Infusion: 12/21/19 06:24 Dose: 100 mls/hr Documented by: Admin: 12/21/19 05:41 Dose: 100 mls/hr Documented by: Infusion: 12/20/19 23:38 Dose: 100 mls/hr Documented by: Admin: 12/20/19 23:08 Dose: 100 mls/hr Documented by: Infusion: 12/20/19 21:05 Dose: 100 mls/hr Documented by: Admin: 12/20/19 20:35 Dose: 100 mls/hr Documented by: Infusion: 12/20/19 17:58 Dose: 0 mls/hr Documented by: Admin: 12/20/19 17:00 Dose: 100 mls/hr Documented by: KENDRICK Sodium Chloride (Sodium Chloride 0.9%) 1,000 mls @ 150 mls/hr IV .Q6H40M [facility] Admin: 12/24/19 11:54 Dose: Not Given Documented by: Admin: 12/24/19 05:12 Dose: 150 mls/hr Documented by: Infusion: 12/24/19 04:20 Dose: 150 mls/hr Documented by: LSCUJOSE RAULY Admin: 12/23/19 21:39 Dose: 150 mls/hr Documented by: Infusion: 12/23/19 20:43 Dose: 150 mls/hr Documented by: Admin: 12/23/19 20:08 Dose: Not Given Documented by: Admin: 12/23/19 14:02 Dose: 150 mls/hr Documented by: Infusion: 12/23/19 12:30 Dose: 0 mls/hr Documented by: [email or web address] Admin: 12/23/19 05:49 Dose: 150 mls/hr Documented by: Infusion: 12/23/19 05:37 Dose: 150 mls/hr Documented by: Admin: 12/22/19 22:56 Dose: 150 mls/hr Documented by: Infusion: 12/22/19 21:27 Dose: 150 mls/hr Documented by: Admin: 12/22/19 19:47 Dose: Not Given Documented by: Admin: 12/22/19 14:46 Dose: 150 mls/hr Documented by: Infusion: 12/22/19 12:39 Dose: 150 mls/hr Documented by: Admin: 12/22/19 05:58 Dose: 150 mls/hr Documented by: Infusion: 12/22/19 05:29 Dose: 150 mls/hr Documented by: Admin: 12/21/19 22:48 Dose: 150 mls/hr Documented by: Infusion: 12/21/19 21:24 Dose: 150 mls/hr Documented by: Admin: 12/21/19 17:13 Dose: Not Given Documented by: Admin: 12/21/19 14:43 Dose: 150 mls/hr Documented by: Infusion: 12/21/19 12:22 Dose: 150 mls/hr Documented by: Admin: 12/21/19 10:43 Dose: Not Given Documented by: Admin: 12/21/19 05:41 Dose: 150 mls/hr Documented by: Infusion: 12/21/19 04:26 Dose: 150 mls/hr Documented by: Admin: 12/20/19 21:45 Dose: 150 mls/hr Documented by: Infusion: 12/20/19 21:45 Dose: 150 mls/hr Documented by: Admin: 06/21/20 15:19 Dose: 150 mls/hr Documented by: KENDRICK Insulin Human Lispro (Humalog) 0 unit SQ ACHS [facility]; Protocol Last Admin: 12/24/19 12:03 Dose: 6 unit Documented by: Admin: 12/24/19 08:00 Dose: 6 unit Documented by: Admin: 12/23/19 20:35 Dose: 4 unit Documented by: Admin: 12/23/19 17:44 Dose: 6 unit Documented by: Admin: 12/23/19 11:42 Dose: Not Given Documented by: Admin: 12/23/19 07:44 Dose: 4 unit Documented by: Admin: 12/22/19 19:51 Dose: 4 unit Documented by: Admin: 12/22/19 17:15 Dose: 4 unit Documented by: Admin: 12/22/19 11:41 Dose: Not Given Documented by: Admin: 12/22/19 07:36 Dose: Not Given Documented by: Admin: 12/21/19 19:50 Dose: Not Given Documented by: Admin: 12/21/19 16:51 Dose: 2 unit Documented by: Admin: 12/21/19 11:02 Dose: Not Given Documented by: Admin: 12/21/19 06:39 Dose: Not Given Documented by: Admin: 12/20/19 21:44 Dose: Not Given Documented by: Admin: 12/20/19 17:07 Dose: Not Given Documented by: KENDRICK Lorazepam (Ativan) 1 mg IV Q6HP PRN PRN Reason: ANXIETY/SEDATION Last Admin: 12/21/19 10:29 Dose: 1 mg Documented by: MESFIN Ondansetron HCl (Zofran) 4 mg IV Q4HP PRN PRN Reason: Nausea And Vomiting Last Admin: 12/20/19 20:10 Dose: 4 mg Documented by: [email or web address] Pantoprazole Sodium (Protonix) 40 mg IV BIDAC [facility] Last Admin: 12/24/19 08:00 Dose: 40 mg Documented by: Admin: 12/23/19 17:14 Dose: 40 mg Documented by: Admin: 12/23/19 06:51 Dose: 40 mg Documented by: Admin: 12/22/19 16:59 Dose: 40 mg Documented by: Admin: 12/22/19 07:31 Dose: 40 mg Documented by: Admin: 12/21/19 16:45 Dose: 40 mg Documented by: Admin: 12/21/19 06:36 Dose: 40 mg Documented by: Admin: 12/20/19 17:00 Dose: 40 mg Documented by: KENDRICK Sodium Chloride (Saline Flush) 10 ml IV Q8 R[facility]RIGUEZ [facility] Admin: 12/24/19 05:12 Dose: 10 ml Documented by: Admin: 12/23/19 20:35 Dose: 10 ml Documented by: Admin: 12/23/19 14:03 Dose: 10 ml Documented by: Admin: 12/23/19 04:00 Dose: 10 ml Documented by: Admin: 12/22/19 20:38 Dose: Not Given Documented by: Admin: 12/22/19 19:54 Dose: 10 ml Documented by: Admin: 12/22/19 13:10 Dose: 10 ml Documented by: Admin: 12/22/19 05:58 Dose: 10 ml Documented by: Admin: 12/21/19 20:07 Dose: Not Given Documented by: Admin: 12/21/19 19:51 Dose: 10 ml Documented by: [email or web address] Shift Summary 12/24/19 03:33 Shift Summary by Geena Wyatt Patient was admitted on 12/19 for an open tmiothy. Patient is on a regular diet and tolerating well. Patient has been up adlib in the room. He has been voiding per urinal. he has a midline incision with reid covered with a clear film dressing. He has two TERI drains putting out serosanginous drainage and has an abdominal binder. He has bilateral iv sights both flushed and patient. He had dilaudid X 3 during the night. He has normal saline running at 150 ml.hr. He has not had a bowel movement but has been passing flatus. He wears glasses and often losses them in the bed. beware so he does not break them. He also looses his cell phone there frequently. He is oriented, able to makes his needs known. Will update at bedside. Initialized on 12/24/19 03:33 - END OF NOTE
--- NOTE | 2020-01-05 13:59 | Operative Note ---
DATE OF OPERATION: 12/20/2019 PREOPERATIVE DIAGNOSIS: Acute cholecystitis. POSTOPERATIVE DIAGNOSES: Acute cholecystitis with periduodenal inflammation. PROCEDURE: Open cholecystectomy with exploratory laparotomy. SURGEON: Jose G Chen M.D. FINDINGS: The gallbladder was mildly inflamed secondary to an inflammatory process in the subhepatic space, but the colon, stomach, and duodenum were all normal without evidence of detectable leak, though there was bilious fluid and inflammatory exudate in the right upper quadrant in the subhepatic space. DESCRIPTION OF PROCEDURE: Under general anesthesia, the patient's abdomen was prepped and draped in a sterile field. Timeout procedure was carried out as per protocol. Supraumbilical incision was made and Veress needle was inserted. Abdomen was insufflated with 2 liters of CO2. A 12 mm port was placed. Laparoscope was placed. Under videoscopic guidance, a 12 mm port and two 5 mm ports were placed in the right subcostal region. The patient was placed in deep Trendelenburg position and rotated to the left. The gallbladder was covered with omentum and able to separate it using blunt dissection. It was mildly inflamed, but it appeared to be secondary inflammation. There was a moderate volume of bilious-stained fluid with inflammatory exudate in the right upper quadrant and subhepatic space that appeared to be separate from the gallbladder suggestive of a potential leak. I explored the lesser curvature of the stomach and the duodenum. There was inflammation in the tissue surrounding the duodenum, but I could not tell for sure if there was a leak, so it was elected to do a formal laparotomy. The patient was opened in the midline. Yareli retractor was placed. The stomach was inspected along the lesser curvature with takedown of the lesser omentum and no involvement of the antrum or proximal duodenum was noted. The edematous tissue surrounding the duodenum was incised and the duodenum was fully mobilized using the Bandar maneuver. It was followed out to the second portion of the duodenum, and there was no evidence of leak. The gallbladder was inspected, and it still appeared to be secondarily inflamed, but it was removed starting at the dome, working down to the cystic duct. The cystic duct was clamped, divided, and then tied with 2-0 silk and clipped with three clips. Copious irrigation was carried out. Repeat inspection of the stomach, duodenum, and colon did not reveal any other pathology. Two TERI drains were placed, one in the right gutter and the other in the subhepatic space. These were brought out through separate stab incisions. The sponge, needle, instrument, and blade counts were verified as correct. The peritoneum and fascia were closed with running #1 Prolene. The subcutaneous tissue was closed with 2-0 Monocryl. Skin was closed with reid. Drains were secured with 2-0 nylon. Tegaderm dressings were placed. The patient tolerated the procedure well. He was awakened, extubated, and transferred to the postanesthetic care unit in stable, satisfactory condition. LCS:patel Job ID: [id number] Doc ID: [id number] Jose G Chen M.D.
== END 2019-12-24 13:30 | disposition home or self-care (01) | DRG 414 ==
LOC: MEDSUR 09:49 → ED 09:49 → MEDSUR 15:08
PROVIDERS: ADMIT Family Medicine Adult Medicine; ATTEND Family Medicine Adult Medicine

== ENCOUNTER 2022-05-30 22:38 | Inpatient (IN) ==
[2022-05-30] MEDS ORDERED: IOPAMIDOL 100 ML BOTTLE IV ONE (22:39)
[2022-05-30] MEDS ORDERED: ONDANSETRON 4 MG/2 ML VIAL IV ONE (22:43)
[2022-05-30] MEDS ORDERED: 0.9 % SODIUM CHLORIDE 1,000 ML IV ONE (22:43)
[2022-05-30 23:02] LABS: POC Calcium, Ionized 1.09 (1.16-1.32); POC Creatinine 1.4 (0.6-1.2); POC Potassium 3.7 (3.3-5.1)
[2022-05-30] MEDS ORDERED: 0.9 % SODIUM CHLORIDE 2,120 ML IV ONE (23:03)
[2022-05-31 00:05] LABS: Basophils # (Auto) 0.04 K/mcL (0.00-0.30); Basophils % (Auto) 0.2 % (0.0-2.0); Eosinophils % (Auto) 1.1 % (0.0-7.0); Hematocrit 42.1 % (40.1-51.0); Hemoglobin 14.3 g/dL (13.7-17.5); Lymphocytes # (Auto) 1.72 K/mcL (1.50-4.80); Lymphocytes % (Auto) 9.5 % (15.5-49.0); Mean Cell Volume 85.9 fL (80.0-100.0); Mean Platelet Volume 11.2 fL (8.8-12.5); Monocytes # (Auto) 1.16 K/mcL (0.10-0.90); Monocytes % (Auto) 6.4 % (1.0-12.0); Neutrophils % (Auto) 79.9 % (38.0-78.0); Platelet Count 150 K/mcL (140-440); Red Cell Distribution Width 12.5 % (11.5-14.5); WBC 18.1 K/mcL (4.5-11.0)
[2022-05-31] MEDS ORDERED: PIPERACILLIN SODIUM/TAZOBACTAM 3.375 GM in DEXTROSE 5% IN WATER 50 ML IV ONE (00:07)
[2022-05-31] MEDS ORDERED: VANCOMYCIN 1,000 MG in 0.9 % SODIUM CHLORIDE 250 ML IV ONE (00:07)
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
[2022-05-31] MEDS ORDERED: LACTULOSE 20 GM/30 ML ORAL.SOL PO ONE (02:25)
[2022-05-31] MEDS ORDERED: MAGNESIUM HYDROXIDE 30 ML ORAL.SUSP PO PRN (02:28)
[2022-05-31] MEDS ORDERED: ONDANSETRON 4 MG/2 ML VIAL IV PRN ×2 (02:28→09:13)
[2022-05-31] MEDS ORDERED: 0.9 % SODIUM CHLORIDE 1,000 ML IV SCH (02:30)
[2022-05-31] MEDS: ACETAMINOPHEN 325 MG TABLET PO PRN ×2 (04:15→19:03)
--- NOTE | 2022-05-31 05:13 | Cat Scan Report ---
INDICATION: sob COMPARISON: Chest x-ray dated 05/30/2022 TECHNIQUE: Axial images obtained through the chest. 90ml Isovue 370 injected intravenously, and scanning was performed during pulmonary arterial phase. Sagittally and coronally reformatted images were obtained. MIP reformatted images. FINDINGS: Lungs:Focal areas of parenchymal consolidation with air bronchograms. There is consolidation in the medial segment of the right middle lobe and anteriorly in the left upper lobe along the fissure. Large area of consolidation in the right upper lobe abutting the minor fissure. Findings are consistent with multifocal pneumonia. Mediastinum, vascular:Main pulmonary artery, right pulmonary artery, left pulmonary artery are negative. No intraluminal filling defects. No lobar, segmental, or subsegmental emboli. Thoracic aorta is negative. No aneurysmal dilatation There is mild bilateral hilar adenopathy are consistent with reactive nodes. Heart:No cardiomegaly. No pericardial effusion. No significant reflux of contrast material into the inferior vena cava or hepatic veins Pleura:No significant pleural effusion. No pleural mass or calcification Axilla, supraclavicular regions, chest wall:No pathologic axillary or supraclavicular adenopathy. Musculoskeletal:Negative thoracic spine. No compression fracture. No lytic lesion. No rib or sternal lesions Upper Abdomen:Negative IMPRESSION: 1. Negative pulmonary CTA. No pulmonary embolism 2. Multifocal pneumonia The exam was performed using radiation dose optimization techniques including, but not limited to, automated exposure control, adjustment of the mA and/or kV according to patient size and use of iterative reconstruction technique. Interpreted and Authenticated by: Efrain Carlos 05/31/22
--- NOTE | 2022-05-31 05:50 | Cat Scan Report ---
INDICATION: nv, abd pain COMPARISON: None. TECHNIQUE: Axial images were obtained through the abdomen and pelvis. Sagittally and coronally reformatted images. 90 mL Isovue 370 injected intravenously. Oral contrast material was not administered FINDINGS: Examination was initially interpreted by [facility] Lung bases:Patient has bilateral multifocal pneumonia. Chest CT scan was performed at the same time Liver:Negative. No focal intrahepatic mass. No focal abnormality. Liver contour is smooth. No evidence for cirrhosis Gallbladder, bilary:Previous cholecystectomy. No dilated bile ducts Spleen:No splenomegaly. Normal enhancement of splenic and portal veins. Pancreas:No pancreatic mass. No peripancreatic abnormality Adrenal glands:Negative Kidneys,ureters,bladder:Negative right kidney. No hydronephrosis. No solid or cystic mass. No obstructing or nonobstructing calculi. Mild dilatation of the left intrarenal collecting system. There is mild perinephric infiltration. There is no discrete mass. No obstructing or nonobstructing calculi. Nephrogram appears relatively homogeneous without definite evidence for pyelonephritis. Left ureter is mildly dilated. No left ureteral calculus There is a Matthews catheter within the urinary bladder. Although the urinary bladder is not distended there is evidence for irregular wall thickening. There is intraluminal gas. There is also mild intramural gas. 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 Malignancy is not excluded on this examination. Gastrointestinal:No detectable colonic mass. There is no diverticulitis. Negative small bowel. No mechanical small bowel obstruction. No bowel wall thickening. No focal abnormality. Negative stomach and duodenum. No focal abnormality. Appendix: The appendix is negative Vascular:Negative abdominal aorta. Superior mesenteric artery and celiac trunk are normal. Normal opacification of the inferior mesenteric artery Lymphatic:There are densities in the left hemipelvis consistent with mild iliac chain adenopathy. These may be reactive. Follow-up recommended. Mesentery, peritoneum: No free intraperitoneal fluid. No mesenteric or retroperitoneal mass. No intra-abdominal abscess. Reproductive:Prostate is not significantly enlarged. Seminal vesicles appear enlarged and may contain gas bubbles. Seminal vesicle infection is possible. Musculoskeletal:Mild multilevel degenerative disc disease. L5 spondylolysis without spondylolisthesis. Sacrum and pelvis are negative. No abdominal wall or inguinal hernia IMPRESSION: 1. Abnormal urinary bladder with irregular thickened wall and mild intramural gas. 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 Enlarged seminal vesicles. There may be gas bubbles 3. Mild dilatation of left ureter and collecting system 4. This report was called to the emergency room, 05/31/2022, [id number] The exam was performed using radiation dose optimization techniques including, but not limited to, automated exposure control, adjustment of the mA and/or kV according to patient size and use of iterative reconstruction technique. Interpreted and Authenticated by: Efrain Carlos 05/31/22
--- NOTE | 2022-05-31 06:14 | XRay Report ---
INDICATION: sepsis TECHNIQUE: AP portable semiupright chest x-ray COMPARISON: None FINDINGS: Lungs:Right midlung consolidation consistent with pneumonia. Left lung is negative Heart, vascular:No significant cardiomegaly. Pulmonary vascularity is normal. No pulmonary edema or pulmonary congestion Mediastinum, obed:No mediastinal widening. No hilar mass Pleura:No pleural fluid. No pleural-based mass or calcification Skeletal:Negative. IMPRESSION: 1. Right midlung consolidation consistent with pneumonia 2. Otherwise negative chest x-ray Interpreted and Authenticated by: Efrain Carlos 05/31/22
[2022-05-31 08:07] LABS: ALT/SGPT 20 U/L (<40); AST/SGOT 13 U/L (<40); Albumin 3.1 gm/dL (3.2-5.2); Alkaline Phosphatase 75 U/L (39-117); Bilirubin,Total 0.8 mg/dL (0.1-1.0); Blood Urea Nitrogen 15 mg/dL (6-20); Calcium 8.4 mg/dL (8.6-10.4); Carbon Dioxide 25 mmol/L (22-30); Chloride 98 mmol/L (96-108); Globulin 3.2 gm/dL (2.2-3.7); Glomerular Filtration Rate 72; Glucose 182 mg/dL (70-105)
[2022-05-31] MEDS: DOCUSATE SODIUM 100 MG CAPSULE PO SCH ×2 (08:10→19:05)
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
[2022-05-31 09:11] LABS: Basophils # (Auto) 0.05 K/mcL (0.00-0.30); Basophils % (Auto) 0.4 % (0.0-2.0); Eosinophils # (Auto) 0.01 K/mcL (0.00-0.70); Eosinophils % (Auto) 0.1 % (0.0-7.0); Hematocrit 37.7 % (40.1-51.0); Hemoglobin 12.7 g/dL (13.7-17.5); Lymphocytes % (Auto) 11.8 % (15.5-49.0); Mean Cell Volume 87.1 fL (80.0-100.0); Mean Corpuscular HGB Conc 33.7 g/dL (31.0-36.0); Mean Platelet Volume 10.7 fL (8.8-12.5); Monocytes # (Auto) 0.71 K/mcL (0.10-0.90); Monocytes % (Auto) 5.3 % (1.0-12.0); Platelet Count 140 K/mcL (140-440); RBC 4.33 M/mcL (4.63-6.08); Red Cell Distribution Width 12.6 % (11.5-14.5); WBC 13.5 K/mcL (4.5-11.0)
[2022-05-31] MEDS ORDERED: POTASSIUM CHLORIDE 20 MEQ TABLET PO PRN ×2 (09:13)
[2022-05-31] MEDS ORDERED: POLYETHYLENE GLYCOL 3350 17 GM PACKET PO PRN (09:13)
[2022-05-31] MEDS ORDERED: SENNOSIDES 1 TABLET PO PRN (09:13)
[2022-05-31] MEDS ORDERED: MAGNESIUM SULFATE 2 GM/50 ML BAG IV PRN (09:13)
[2022-05-31] MEDS ORDERED: POTASSIUM CHLORIDE 40 MEQ in DEXTROSE 5% IN WATER 500 ML IV PRN (09:13)
[2022-05-31] MEDS ORDERED: IPRATROPIUM/ALBUTEROL 3 ML AMPUL.NEB NEB PRN (09:15)
[2022-05-31] MEDS ORDERED: DEXTROSE 50% 50 ML VIAL IV PRN (09:15)
[2022-05-31] MEDS ORDERED: DEXTROSE 31 GM ORAL.SUSP PO PRN (09:15)
[2022-05-31 10:10] LABS: Phosphorous 2.4 mg/dL (2.5-4.5)
[2022-05-31] MEDS: PIPERACILLIN SODIUM/TAZOBACTAM 3.375 GM in DEXTROSE 5% IN WATER 50 ML IV SCH ×4 (11:26→23:30)
[2022-05-31] MEDS: ENOXAPARIN 40 MG/0.4 ML SYRINGE SQ SCH (11:27)
[2022-05-31 11:42] LABS: Hemoglobin A1C 10.5 % Hgb (4.0-6.0)
[2022-05-31] MEDS: INSULIN LISPRO 1 UNIT/0.01 ML UNIT SQ SCH ×3 (11:47→21:20)
[2022-05-31] MEDS: 0.9 % SODIUM CHLORIDE 10 ML SYRINGE IV SCH ×2 (13:18→21:16)
[2022-05-31 15:09] LABS: Appearance,Urine CLEAR (Clear); Bilirubin,Urine NEGATIVE (Negative); Color,Urine LT. YELLOW; Culture Indicated,Urine No; Glucose,Urine (UA) 250 mg/dL (Negative); Ketones,Urine NEGATIVE (Negative); Leukocyte Esterase,Urine NEGATIVE /uL (Negative); Nitrate,Urine NEGATIVE (Negative); Protein,Urine NEGATIVE (Negative); Specific Gravity,Urine <= 1.005 (1.000-1.035); Urine Blood NEGATIVE ery/mcL (Negative); Urobilinogen,Urine Normal
[2022-06-01] MEDS: PIPERACILLIN SODIUM/TAZOBACTAM 3.375 GM in DEXTROSE 5% IN WATER 50 ML IV SCH (06:00)
[2022-06-01] MEDS: 0.9 % SODIUM CHLORIDE 10 ML SYRINGE IV SCH ×3 (06:00→23:16)
[2022-06-01 07:09] LABS: Basophils # (Auto) 0.02 K/mcL (0.00-0.30); Basophils % (Auto) 0.2 % (0.0-2.0); Eosinophils # (Auto) 0.12 K/mcL (0.00-0.70); Eosinophils % (Auto) 1.5 % (0.0-7.0); Hematocrit 37.8 % (40.1-51.0); Hemoglobin 12.8 g/dL (13.7-17.5); Lymphocytes # (Auto) 1.22 K/mcL (1.50-4.80); Lymphocytes % (Auto) 14.9 % (15.5-49.0); Mean Cell Volume 86.1 fL (80.0-100.0); Mean Corpuscular HGB Conc 33.9 g/dL (31.0-36.0); Monocytes # (Auto) 0.39 K/mcL (0.10-0.90); Monocytes % (Auto) 4.8 % (1.0-12.0); Neutrophils % (Auto) 78.2 % (38.0-78.0); Platelet Count 136 K/mcL (140-440); RBC 4.39 M/mcL (4.63-6.08); Red Cell Distribution Width 12.3 % (11.5-14.5); WBC 8.2 K/mcL (4.5-11.0)
[2022-06-01 07:48] LABS: ALT/SGPT 19 U/L (<40); AST/SGOT 14 U/L (<40); Albumin 2.9 gm/dL (3.2-5.2); Albumin/Globulin Ratio 0.9 (1.0-2.3); Alkaline Phosphatase 66 U/L (39-117); Bilirubin,Direct < 0.2 mg/dL (0-0.3); Bilirubin,Total 0.4 mg/dL (0.1-1.0); Blood Urea Nitrogen 14 mg/dL (6-20); Calcium 8.5 mg/dL (8.6-10.4); Carbon Dioxide 24 mmol/L (22-30); Chloride 102 mmol/L (96-108); Globulin 3.4 gm/dL (2.2-3.7); Glomerular Filtration Rate 92; Glucose 174 mg/dL (70-105); Lactate Dehydrogenase 163 U/L (135-225); Phosphorous 1.7 mg/dL (2.5-4.5); Triglycerides 192 mg/dL (<150); Uric Acid 3.4 mg/dL (2.5-8.0)
[2022-06-01] MEDS: INSULIN LISPRO 1 UNIT/0.01 ML UNIT SQ SCH ×4 (07:50→21:00)
[2022-06-01] MEDS: DOCUSATE SODIUM 100 MG CAPSULE PO SCH ×2 (08:13→20:24)
[2022-06-01] MEDS: ENOXAPARIN 40 MG/0.4 ML SYRINGE SQ SCH (08:14)
--- NOTE | 2022-06-01 08:36 | Internal Med Progress Note ---
SUBJECTIVE Subjective Patient information: Note initiated : 06/01/22 at 8:32 am Service Date, if different from initiated Date: [] Patient: Yousif Tejeda 62 y/o M admitted on 05/31/22 for nausea, vomiting, diarrhea. Chief Complaint: [] Interval history: History of present illness: Mr. Tejeda is a 62 year old M Patient presents with nausea vomiting diarrhea for 4 days and weakness. Patient was found to have multifocal pneumonia as well as some significant stool noted in the colon. He had elevated lactate at 3 which improved with fluids. Elevated procalcitonin. Patient became hypoxic on room air and required oxygen in the ED. He was tachycardic and tachypneic. Leukocytosis of 18. Hyponatremic and acute kidney injury. Patient started on IV fluids and antibiotics in the ED. Patient states he fell and hurt his back for 4-5 days ago and has had nausea vomiting since then. He is also been constipated but said he started having bowel movement since he came in. He complains of a shortness of breath mildly worsened above baseline. He has a cough he says chronic. Denies fevers and chills. 06/01 Patient overall feeling better but complains of penile pain and burning. Likely second to the Matthews, as urinalysis was unremarkable. We will d/c. Patient denies shortness of breath. Minimal cough. On room air currently. Phosphorus low. Calcitonin elevated but improving. Review of Systems: denies headache/fever/chills/nausea/vomiting/chest or abdominal pain/diarrhea. Otherwise see above. Constitutional Vitals: Vital Signs Temp Pulse Resp BP Pulse Ox O2 Del Method O2 Flow Rate 98.2 F 81 16 149/88 95 2 06/01/22 07:47 06/01/22 07:47 06/01/22 07:47 06/01/22 07:47 06/01/22 07:47 06/01/22 07:47 05/31/22 09:47 Period Temp Pulse Resp BP Sys/Beth Pulse Ox O2 Del Method O2 Flow Rate Last 24 Hr 98.2 F-98.4 F 77-91 - 105-149/61-88 93-95 Nasal Cannula- Room Air 2 Intake and Output 05/31/22 06/01/22 06/01/22 19:59 03:59 11:59 Intake Total 1580 50 500 Output Total 1000 1100 Balance 580 50 -600 Weight 86.183 kg Intake & Output: Intake & Output 05/31/22 06/01/22 06/01/22 19:59 03:59 11:59 Intake Total 1580 50 500 Output Total 1000 1100 Balance 580 50 -600 Weight 86.183 kg Intake: IV 1100 50 50 Sodium Chloride 0.9% 1,000 ml @ 1000 100 mls/hr IV .Q10H RODRIGUEZ Rx#: [id number] Zosyn 3.375 gm In Dextrose 5% 100 50 50 in Water 50 ml @ 100 mls/hr IV Q6H RODRIGUEZ Rx#:[id number] Oral 480 450 Output: Urine Catheter Amount 1000 1100 Other: Meal Dinner Percent of Meal Consumed 100% Feeding Ability Independent Urine Appearance Clear Clear Uretheral ([place]) Clear Urine Color Yellow Dark Yellow Uretheral ([place]) Yellow Urine Odor Normal Normal Uretheral ([place]) Normal # Bowel Movements 2 Exam: General: awake, No acute Distress Eyes/N/T: EOMI, Head/Neck: neck supple, CV: RRR, No murmurs, Pulm: Mild rhonchi, no wheezing today Abd: soft, nontender, +BS x4 Ext: no clubbing/cyanosis/edema Neuro: Alert, no focal deficits, moves all extremities, Skin: warm/dry OBJ DATA Labs CBC & Chem 7: 06/01/22 05:38 06/01/22 05:38 Labs: Abnormal Lab Results 06/01/22 06/01/22 06/01/22 05:39 05:38 05:38 WBC RBC 4.39 L Hgb 12.8 L Hct 37.8 L Plt Count 136 L Immature Gran % (Auto) Neut % (Auto) 78.2 H Lymph % (Auto) 14.9 L Lymph # (Auto) 1.22 L [place] # (Auto) Immature Gran # Absolute Neutrophils POC VBG pH POC VBG pCO2 at Temp POC VBG pO2 POC VBG HCO3 POC VBG Total CO2 POC Venous O2 Sat POC VBG Base Excess VBG Lactic Acid POC Sodium Sodium POC Chloride POC BUN POC Creatinine Glucose 174 H POC Glucose Hemoglobin A1c Calcium 8.5 L POC WB Ioniz Calcium Phosphorus 1.7 L Albumin 2.9 L Albumin/Globulin Ratio 0.9 L Triglycerides 192 H Procalcitonin 3.25 H Urine Glucose (UA) 05/31/22 05/31/22 05/31/22 08:36 08:36 06:14 WBC 13.5 H RBC 4.33 L Hgb 12.7 L Hct 37.7 L Plt Count Immature Gran % (Auto) 2.4 H Neut % (Auto) 80.0 H Lymph % (Auto) 11.8 L Lymph # (Auto) [place] # (Auto) Immature Gran # 0.32 H Absolute Neutrophils 10.82 H POC VBG pH POC VBG pCO2 at Temp POC VBG pO2 POC VBG HCO3 POC VBG Total CO2 POC Venous O2 Sat POC VBG Base Excess VBG Lactic Acid POC Sodium Sodium 132 L POC Chloride POC BUN POC Creatinine Glucose 182 H POC Glucose Hemoglobin A1c 10.5 H Calcium 8.4 L POC WB Ioniz Calcium Phosphorus 2.4 L Albumin 3.1 L Albumin/Globulin Ratio Triglycerides Procalcitonin Urine Glucose (UA) 05/31/22 05/31/22 05/30/22 01:54 00:54 23:32 WBC RBC Hgb Hct Plt Count Immature Gran % (Auto) Neut % (Auto) Lymph % (Auto) Lymph # (Auto) [place] # (Auto) Immature Gran # Absolute Neutrophils POC VBG pH POC VBG pCO2 at Temp 39.0 L POC VBG pO2 52 H POC VBG HCO3 POC VBG Total CO2 POC Venous O2 Sat 87.0 H POC VBG Base Excess VBG Lactic Acid POC Sodium Sodium POC Chloride POC BUN POC Creatinine Glucose POC Glucose Hemoglobin A1c Calcium POC WB Ioniz Calcium Phosphorus Albumin Albumin/Globulin Ratio Triglycerides Procalcitonin 5.28 H Urine Glucose (UA) 250 A 05/30/22 05/30/22 05/30/22 23:31 22:58 22:58 WBC 18.1 H RBC Hgb Hct Plt Count Immature Gran % (Auto) 2.9 H Neut % (Auto) 79.9 H Lymph % (Auto) 9.5 L Lymph # (Auto) [place] # (Auto) 1.16 H Immature Gran # 0.53 H Absolute Neutrophils 14.40 H POC VBG pH 7.48 H POC VBG pCO2 at Temp 38.8 L POC VBG pO2 POC VBG HCO3 28.5 H POC VBG Total CO2 30.0 H POC Venous O2 Sat POC VBG Base Excess 5.0 H* VBG Lactic Acid 3.1 H POC Sodium 130 L Sodium POC Chloride 92 L POC BUN 22 H POC Creatinine 1.4 H Glucose POC Glucose 285 H Hemoglobin A1c Calcium POC WB Ioniz Calcium 1.09 L Phosphorus Albumin Albumin/Globulin Ratio Triglycerides Procalcitonin Urine Glucose (UA) Meds: Medications Acetaminophen (Acetaminophen 325 Mg Tablet) 650 mg PO Q6HP PRN; Protocol PRN Reason: Per Pain Protocol/Fever > 101 Last Admin: 05/31/22 19:03 Dose: 650 mg Albuterol/Ipratropium (Ipratropium/Albuterol 3 Ml Ampul.Neb) 3 ml NEB Q4HP PRN PRN Reason: Shortness Of Breath Dextrose (Dextrose 50% 50 Ml Vial) 0 ml IV UD PRN PRN Reason: Per Sliding Scale Diagnostic Test (Pha) (Accu-Chek 1 Each Strip) 1 each FS ACHS [facility] Last Admin: 06/01/22 07:50 Dose: 1 each Docusate Sodium (Docusate Sodium 100 Mg Capsule) 100 mg PO BID [facility] Last Admin: 06/01/22 08:13 Dose: Not Given Enoxaparin Sodium (Enoxaparin 40 Mg/0.4 Ml Syringe) 40 mg SQ DAILY [facility] Last Admin: 06/01/22 08:14 Dose: 40 mg Glucose (Dextrose 31 Gm Oral.Susp) 15 gm PO PRN PRN PRN Reason: Hypoglycemia Piperacillin Sod/Tazobactam (Sod 3.375 gm/ Dextrose) 50 mls @ 100 mls/hr IV Q6H [facility]; Protocol Last Infusion: 06/01/22 06:37 Dose: Infused Potassium Chloride 40 meq/ (Dextrose) 520 mls @ 130 mls/hr IV UD PRN PRN Reason: Potassium < 3 Magnesium Sulfate (Magnesium Sulfate) 2 gm in 50 mls @ 50 mls/hr IV UD PRN PRN Reason: Magnesium </= 1.6 Insulin Human Lispro (Insulin Lispro 1 Unit/0.01 Ml Unit) 0 unit SQ ACHS [facility]; Protocol Last Admin: 06/01/22 07:50 Dose: 4 unit Magnesium Hydroxide (Magnesium Hydroxide 30 Ml Oral.Susp) 30 ml PO DAILYP PRN PRN Reason: Constipation Ondansetron HCl (Ondansetron 4 Mg/2 Ml Vial) 4 mg IV Q4HP PRN; Protocol PRN Reason: Nausea And Vomiting Ondansetron HCl (Ondansetron 4 Mg/2 Ml Vial) 4 mg IV Q4HP PRN PRN Reason: Nausea And Vomiting Polyethylene Glycol (Polyethylene Glycol 3350 17 Gm Packet) 17 gm PO DAILYP PRN PRN Reason: Constipation Potassium Chloride (Potassium Chloride 20 Meq Tablet) 40 meq PO UD PRN PRN Reason: Potssium is 3-3.5 Potassium Chloride (Potassium Chloride 20 Meq Tablet) 40 meq PO UD PRN PRN Reason: Potassium < 3 Senna (Sennosides 1 Tablet) 2 tab PO DAILYP PRN PRN Reason: Constipation Sodium Chloride (0.9 % Sodium Chloride 10 Ml Syringe) 10 ml IV Q8 RODRIGUEZ Last Admin: 06/01/22 06:00 Dose: 10 ml A/P Narrative A/P Narrative: A: *Acute hypoxic respiratory failure: 2/2 PNA -on 2L NC initially, now on room air *PNA b/l: -Elevated PCT but improving. covid/rsv/flu/strep neg *Sepsis with hyperlactatemia: -improving *SHERIN: 2/2 above *Hyponatremia: improving *Hypophosphatemia: *DM2: a1c 10.5 *HTN/HLD: On BB *GERD: *Constipation: resolving *Tobacco abuse: P: -IV antibiotics, pending BC/SC, mrsa screen -myco pending -Follow-up PCT -Supplemental O2 and wean as able -Monitor renal function/urine output -Monitor replace and follow-up electrolytes -SSI, home basal -Continue BB -Bowel regimen -Smoking cessation counseling -PT/ST -ppx: Lovenox/PPI Time Spent With Patient Time: Total time spent is greater than 50% in coordination of care (as documented) at patient's floor/unit and/or counseling patient: Total time spent with greater than 50% in coordination of care (as documented) at patient's floor/unit and/or counseling patient:: 35 - 50 minutes
[2022-06-01] MEDS: INSULIN GLARGINE, HUMAN 1 UNIT/0.01 ML SQ SCH (09:16)
[2022-06-01] MEDS: NEUTRA PHOS 1 PACKET PO SCH ×2 (09:16→21:00)
[2022-06-01] MEDS: METOPROLOL TARTRATE 50 MG TABLET PO SCH (09:16)
[2022-06-01] MEDS ORDERED: FLU VACC QS2022-23(6MOS UP)/PF 60 MCG/0.5 ML SYRINGE IM ONE (10:00)
[2022-06-01] MEDS: AZITHROMYCIN 250 MG TABLET PO SCH (11:16)
[2022-06-01] MEDS: PHOSPHORUS 250 MG TABLET PO SCH ×2 (11:17→21:00)
--- NOTE | 2022-06-01 12:37 | Discharge Summary ---
Discharge Provider Provider IMPORTANT FOLLOW-UP INFORMATION FOR PCP: Patient information: Note initiated : 06/01/22 at 12:36 pm Service Date, if different from initiated Date: [] Patient: Yousif Tejeda 62 y/o M admitted on 05/31/22 for nausea, vomiting, diarrhea. Chief Complaint: [] Date of admission: 05/31/22 03:05 Discharge date: 06/02/22 Primary care physician: Dominique Monsalve Consults: 05/31/22 Consult to Physician [CONS] Stat Comment: Consulting Provider: Jeromy Simons Reason For Exam: Physician to Consult COURSE Hospital Course Hospital course: History of present illness: Mr. Tejeda is a 62 year old M Patient presents with nausea vomiting diarrhea for 4 days and weakness. Patient was found to have multifocal pneumonia as well as some significant stool noted in the colon. He had elevated lactate at 3 which improved with fluids. Elevated procalcitonin. Patient became hypoxic on room air and required oxygen in the ED. He was tachycardic and tachypneic. Leukocytosis of 18. Hyponatremic and acute kidney injury. Patient started on IV fluids and antibiotics in the ED. Patient states he fell and hurt his back for 4-5 days ago and has had nausea vomiting since then. He is also been constipated but said he started having bowel movement since he came in. He complains of a shortness of breath mildly worsened above baseline. He has a cough he says chronic. Denies fevers and chills. 06/01 Patient overall feeling better but complains of penile pain and burning. Likely second to the Matthews, as urinalysis was unremarkable. We will d/c. Patient denies shortness of breath. Minimal cough. On room air currently. Phosphorus low. Calcitonin elevated but improving. 06/02 Patient doing well. On room air. Stable for discharge. A: *Acute hypoxic respiratory failure: 2/2 PNA *PNA b/l: *Sepsis with hyperlactatemia: *SHERIN: 2/2 above *Hyponatremia: improving *Hypophosphatemia: *DM2: a1c 10.5 *HTN/HLD: On BB *GERD: *Constipation: resolving *Tobacco abuse: P: -antibiotics Discharge diagnosis: Acute hypoxic respiratory failure pneumonia sepsis Secondary discharge diagnosis: SHERIN hyponatremia hypophosphatemia diabetes hypertension GERD constipation tobacco abuse Time Spent with Patient Time attestation: Total time spent providing and/or coordinating discharge services: Time spent: Greater than 30 minutes EXAM Constitutional Vitals: Temp Pulse Resp BP Pulse Ox O2 Del Method O2 Flow Rate 98.8 F 63 16 124/78 98 2 06/01/22 11:14 06/01/22 11:14 06/01/22 11:14 06/01/22 11:14 06/01/22 11:14 06/01/22 11:14 05/31/22 09:47 Discharge Data Data Completed and Pending Labs on day of discharge: Labs from last 24 hours 06/01/22 06/01/22 06/01/22 05:39 05:38 05:38 WBC 8.2 RBC 4.39 L Hgb 12.8 L Hct 37.8 L MCV 86.1 MCH 29.2 MCHC 33.9 RDW 12.3 Plt Count 136 L MPV 11.0 Immature Gran % (Auto) 0.4 Neut % (Auto) 78.2 H Lymph % (Auto) 14.9 L [place] % (Auto) 4.8 Eos % (Auto) 1.5 Baso % (Auto) 0.2 Lymph # (Auto) 1.22 L [place] # (Auto) 0.39 Eos # (Auto) 0.12 Baso # (Auto) 0.02 Immature Gran # 0.03 Absolute Neutrophils 6.43 Sodium 136 Potassium 3.8 Chloride 102 Carbon Dioxide 24 Anion Gap 10.0 BUN 14 Creatinine 0.9 GFR Calculation 92 Glucose 174 H Uric Acid 3.4 Calcium 8.5 L Phosphorus 1.7 L Magnesium 1.8 Total Bilirubin 0.4 Direct Bilirubin < 0.2 GGT 27 AST 14 ALT 19 Alkaline Phosphatase 66 Lactate Dehydrogenase 163 Total Protein 6.3 Albumin 2.9 L Globulin 3.4 Albumin/Globulin Ratio 0.9 L Triglycerides 192 H Procalcitonin 3.25 H Urine Color Urine Appearance Urine pH Ur Specific [place] Urine Protein Urine Glucose (UA) Urine Ketones Urine Occult Blood Urine Nitrate Urine Bilirubin Urine Urobilinogen Ur Leukocyte Esterase Ur Culture Indicated? Ur Strep pneumoniae Ag 05/31/22 05/31/22 00:54 00:54 WBC RBC Hgb Hct MCV MCH MCHC RDW Plt Count MPV Immature Gran % (Auto) Neut % (Auto) Lymph % (Auto) [place] % (Auto) Eos % (Auto) Baso % (Auto) Lymph # (Auto) [place] # (Auto) Eos # (Auto) Baso # (Auto) Immature Gran # Absolute Neutrophils Sodium Potassium Chloride Carbon Dioxide Anion Gap BUN Creatinine GFR Calculation Glucose Uric Acid Calcium Phosphorus Magnesium Total Bilirubin Direct Bilirubin GGT AST ALT Alkaline Phosphatase Lactate Dehydrogenase Total Protein Albumin Globulin Albumin/Globulin Ratio Triglycerides Procalcitonin Urine Color Lt. yellow Urine Appearance Clear Urine pH 7.0 Ur Specific [place] <= 1.005 Urine Protein Negative Urine Glucose (UA) 250 A Urine Ketones Negative Urine Occult Blood Negative Urine Nitrate Negative Urine Bilirubin Negative Urine Urobilinogen Normal Ur Leukocyte Esterase Negative Ur Culture Indicated? No Ur Strep pneumoniae Ag Negative Preliminary micro results at discharge 05/31/22 00:35 Blood Culture - Preliminary Blood 05/31/22 00:30 Blood Culture - Preliminary Blood Discharge Plan Patient/Caregiver Discharge Instructions Activity: increase activity as tolerated Diet: Consistent Carbohydrate Prescriptions: New levofloxacin 750 mg tablet 750 mg PO Q24H Qty: 4 0RF Rx Instructions: start on 06/03/2022 Continued metoprolol tartrate 50 MG tablet 100 mg PO DAILY metformin 500 MG tablet extended release 24 hr 1,000 mg PO BID glipizide 5 MG tablet 10 mg PO QAMAC (DME) cane 1 EACH device 1 each MC CONT Qty: 1 0RF Tresiba FlexTouch U-200 40 unit .Route DAILY Follow Up Plan Follow up with: Dominique Monsalve ARNP [Primary Care Provider] - Patient Disposition: Home, Self-Care Prognosis: Fair Overall status at discharge: patient is progressing back to baseline Discharge Orders: Discharge Order (Routine); Ordered 06/02/22 Ordered By: Jeromy Simons
[2022-06-01] MEDS ORDERED: cefTRIAXone 1 GM VIAL IV SCH (13:00)
[2022-06-02] MEDS: 0.9 % SODIUM CHLORIDE 10 ML SYRINGE IV SCH (04:22)
[2022-06-02] MEDS: INSULIN LISPRO 1 UNIT/0.01 ML UNIT SQ SCH (07:51)
[2022-06-02] MEDS: DOCUSATE SODIUM 100 MG CAPSULE PO SCH (09:14)
[2022-06-02] MEDS: AZITHROMYCIN 250 MG TABLET PO SCH (09:14)
[2022-06-02] MEDS: METOPROLOL TARTRATE 50 MG TABLET PO SCH (09:14)
[2022-06-02] MEDS: ENOXAPARIN 40 MG/0.4 ML SYRINGE SQ SCH (09:15)
[2022-06-02] MEDS: INSULIN GLARGINE, HUMAN 1 UNIT/0.01 ML SQ SCH (09:15)
--- NOTE | 2022-06-02 11:31 | EKG ---
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
[2022-06-05 14:45] LABS: M. Pneumoniae IGG 1.46
== END 2022-06-02 11:00 | disposition home or self-care (01) | DRG 871 ==
LOC: ED 22:38 → MEDSUR 05-31 03:05
PROVIDERS: ADMIT Internal Medicine; ATTEND Internal Medicine